=== PATIENT | female | born 1950 | race Caucasian/White ===

== ENCOUNTER → 2020-02-07 09:15 | Outpatient (CLI) | payer MEDICARE, SELFPAY ==
--- NOTE | 2020-02-07 | DI.RAD.S_ITS ---
PROCEDURE: XR CHEST 2V INDICATIONS: COUGH TECHNIQUE: 2 views of the chest were acquired. COMPARISON: None. FINDINGS: Surgical changes and devices: Cervical spine fixation hardware and thoracolumbar fixation hardware is partially seen. Lungs and pleura: Lungs are clear. No pleural effusions or pneumothorax. Mediastinum: Mediastinal contours are normal. Heart size is normal. Bones and chest wall: No suspicious bony abnormalities. Age-appropriate bony degenerative changes are seen. S-shaped scoliotic curvature is seen. Soft tissues appear unremarkable. IMPRESSION: Clear lungs, without focal infiltrates. Postoperative and degenerative changes are seen. Dictated by: Ace Field M.D. on 02/07/2020 at 11:12 Approved by: Ace Field M.D. on 02/07/2020 at 11:13
--- NOTE | 2020-02-07 11:59 | DI.US.S_ITS ---
PROCEDURE: US ABDOMEN LIMITED INDICATIONS: POST PRANDIAL RUQ AND EPIGASTRIC PAIN TECHNIQUE: Real-time scanning was performed of the abdominal and retroperitoneal organs, with image documentation. COMPARISON: None. FINDINGS: Liver: Liver is normal in size and homogeneous in echotexture. Gallbladder: There is no gallstone. No gallbladder wall thickening or pericholecystic fluid. No sonographic Thurman sign. Biliary ducts: Intrahepatic bile ducts are non-dilated. Extrahepatic bile duct caliber measures 7.2 mm. Normal is 6-7 mm or less in diameter, or 10 mm or less post-cholecystectomy. Pancreas: Visualized portions of the pancreas are sonographically normal. IMPRESSION: Borderline prominent common bile duct which is in the upper limits of normal for patient's age. No gross choledocholithiasis is seen. No intrahepatic biliary ductal dilatation. Normal appearing gallbladder, liver and visualized portion of pancreas. Dictated by: Víctor Monroe M.D. on 02/07/2020 at 12:53 Approved by: Víctor Monroe M.D. on 02/07/2020 at 12:54
== END ==
PROVIDERS: PCP Family Medicine; Referring Provider Family Medicine; Visit Provider Family Medicine
DX: R05 Cough (principal); R10.11 Right upper quadrant pain; R10.13 Epigastric pain; M41.9 Scoliosis, unspecified; K92.1 Melena; K27.9 Peptic ulcer, site unspecified, unspecified as acute or chronic, without hemorrhage or perforation; D64.9 Anemia, unspecified
CPT/HCPCS: 71046; 76705; 99214

== ENCOUNTER 2020-02-15 09:32 | Day surgery (SDC) | payer MEDICARE, SELFPAY ==
--- NOTE | 2020-02-15 | PATH_ITS ---
[facility] Accession Number: [id number] . 01 Material submitted: . PART A: duodenum - POLYP DUODENUM PART B: gastrointestinal site - STOMACH PART C: esophagus - ESOPHAGUS . 01 Clinical history: . SDC . 02 Diagnosis: A. Duodenum, Polyp, Biopsy: Duodenal mucosa with no diagnostic abnormality. Additional levels were examined. Negative for intraepithelial lymphocytosis or villous blunting. Negative for dysplasia and malignancy. . B. Stomach, Biopsy: Superficial gastric epithelium with no diagnostic abnormality. Additional levels were examined. Negative for Helicobacter by immunohistochemistry. Negative for intestinal metaplasia. Negative for dysplasia and malignancy. . C. Esophagus, Biopsy: Squamocolumnar junctional mucosa with no diagnostic abnormality. Negative for intestinal metaplasia. Negative for dysplasia and malignancy. . [facility] 02/19/2020 1613 Local . 02 Electronically signed: . Leeann Romeo MD, Pathologist NPI- [id number] . 01 Gross description: . Part A: POLYP DUODENUM: Received in formalin is 1 fragment(s) of harris, soft tissue measuring 0.4 x 0.2 x 0.1 cm submitted entirely in 1 cassette(s) Part B: STOMACH: Received in formalin are minute fragment(s) of harris, soft tissue measuring 0.2 x 0.2 x 0.1 cm in aggregate submitted entirely in 1 cassette(s) Part C: ESOPHAGUS: Received in formalin are 2 fragment(s) of harris, soft tissue measuring 0.2 x 0.2 x 0.1 cm to 0.1 x 0.1 x 0.1 cm submitted entirely in 1 cassette(s) /QKALPESH 02/16/2020 0747 Local . 02 Microscopic: . B. An immunohistochemical stain was performed to evaluate for Helicobacter organisms and is negative. The control stain showed appropriate reactivity. . C. An alcian blue stain was performed to evaluate for intestinal metaplasia and is negative. The control stain showed appropriate reactivity. . * This test was developed and its performance characteristics determined by [facility]. It has not been cleared or approved by the U.S. Food and Drug Administration. The FDA has determined that such clearance or approval is not necessary. This test is used for clinical purposes. It should not be regarded as investigational or for research. . 02 Pathologist provided ICD-10: D64.9, R10.13 . 02 CPT . 028891, 999151, 610129, S06515, 650117 Performed at: 01 [facility] [address] [place] [address], [place], [place] [id number] MD Roberto Chung MD Phone: [phone] Performed at: 02 [facility] [address] [place], [place] [id number] MD Leeann Romeo MD Phone: [phone]
[2020-02-15 09:57] VITALS: BP 130/80; PULSE 60; RESP 20; TEMP 36.3; O2SAT 100; BMI 21.9
[2020-02-15] MEDS: SODIUM CHLORIDE 0.9% 1,000 ML 200 ML IV (10:06)
--- NOTE | 2020-02-15 10:17 | PM.PREOP ---
Pre-operative Note COVID-19 COVID-19 status: Negative Result date/Date tested (Pos, Neg/Pending): 02/13/20 Interval Note History & Physical reviewed/Exam performed by Physician: Yes Changes to H&P: No ASA Class (for procedural sedation): I
--- NOTE | 2020-02-15 10:21 | P.OP.ENDO_ITS ---
Operative Date/Time/Diagnoses Date of procedure: 02/15/20 Time of procedure: 10:21 Pre-op diagnosis: Epigastric pain Post-op diagnosis: other (Gastric ulcers, prominent duodenal ampulla, reflux esophagitis, hill grade 3 hiatal hernia) Procedure & Clinicians Study performed: Esophagogastric duodenoscopy Conscious sedation performed by the endoscopy Cold forceps biopsies of duodenum, gastric antrum, distal esophagus Same procedure as scheduled: Yes Indications: Epigastric pain Surgeon: Mindi Ibarra Procedure Notes SCOAP/Timeout: Performed Procedure in detail: The patient was brought to the room and placed in left late ral decubitus position with all bony prominences padded. A bite block was positioned in the patient's mouth to protect the lips, teeth, and tongue for the procedure. A time-out was performed and then the patient was given procedural sedation starting with 2 mg of Versed and [100] mcg of fentanyl. A total of 3 mg of Versed and 100 micro g of fentanyl were given for the entire procedure. Vitals were monitored throughout the procedure and remained stable. Once adequately sedated, the procedure was begun. The lubricated gastroscope was passed through the bite block and across the tongue and into the esophagus without incident. A tubular view of the esophagus was maintained as the scope was advanced through the esophagus and into the stomach. The scope was advanced through the stomach and to the pylorus. The scope was gently popped through the pylorus and into the duodenal bulb. The scope was flexed and advanced into the second and third portions of the duodenum. Mild inflammation of the duodenal mucosa was seen, and a prominent ampulla of Vater was seen. Biopsies were taken of the duodenum. The scope was withdrawn into the stomach. Several shallow ulcers with mucosal slough central scarring were seen in the gastric antrum. No active bleeding or exposed vessels were seen. Biopsies were taken at this site. There was moderate endoscopic gastritis throughout the stomach. The scope was retroflexed and the gastric cardia was examined. In the hiatus a Hill grade 3 hiatal hernia was seen without any ulcerations. The scope was then straightened, and withdrawn into the esophagus. The Z-line was at 40 cm, and a few tongues of salmon-colored mucosa were seen coming up into the esophagus about 1-2 cm. This area was biopsied. The distal esophagus appeared otherwise normal. This the remainder the esophagus was examined, and it was moderately patulous, but with normal intact shiny epithelium. A couple of gastric inlet patches were seen in the upper esophagus. The scope was then withdrawn through the esophagus with a tubular view. The scope was then withdrawn from the patient the procedure was concluded. The patient tolerated the procedure well and was transferred to the PACU in stable condition. Sedation minutes: 22 Findings: gastric ulcer, gastritis, hiatal hernia (Hill grade 3) and other findings (Low-grade mucosal changes in the distal esophagus; prominent ampulla of Vater) Specimen(s): other (Biopsies of duodenum, gastric ulcers, distal esophagus) Post-procedure Recommendations: Other recommendation (Restart omeprazole, further recommendations will depend on biopsy results) Follow up: as needed (Will depend on biopsy results) Disposition: PACU
[2020-02-15] MEDS: fentaNYL 250 MCG/5 ML INJ IV (10:47)
[2020-02-15] MEDS: MIDAZOLAM 5 MG/5 ML VIAL IV (10:48)
[2020-02-15 10:51] VITALS: BP 108/70; PULSE 54; RESP 11; TEMP 35.8; O2SAT 97
[2020-02-15 10:56] VITALS: BP 109/71; PULSE 53; RESP 11; TEMP 36.8; O2SAT 95
[2020-02-15 11:01] VITALS: BP 110/68; PULSE 49; RESP 12; O2SAT 97
[2020-02-15 11:06] VITALS: BP 105/67; PULSE 48; RESP 10; O2SAT 96
[2020-02-15 11:40] VITALS: BP 102/69; PULSE 48; RESP 18; TEMP 36.6; O2SAT 100
--- NOTE | 2020-02-15 12:01 | SUR.PHASEII ---
Assumed care from Mitul in PACU, reported off to Yesi Shankar in Phase 2. Stable PACU stay, sppech strong swallow intact.
--- NOTE | 2020-02-15 12:03 | SUR.PHASEII ---
D/C paper work discussed with pt, pt voiced an understanding.
== END 2020-02-15 11:53 | disposition home or self-care (01) ==
PROVIDERS: PCP Family Medicine; Referring Provider Surgery; Visit Provider Surgery
PROC: 0DJ08ZZ Inspection of Upper Intestinal Tract, Via Natural or Artificial Opening Endoscopic (ICD-10-PCS; CPT 43235; principal; 2020-02-15 10:00)
DX: K25.9 Gastric ulcer, unspecified as acute or chronic, without hemorrhage or perforation (principal); K44.9 Diaphragmatic hernia without obstruction or gangrene; K29.70 Gastritis, unspecified, without bleeding
CPT/HCPCS: 43239; 99152; J2250; J3010

== ENCOUNTER 2020-06-06 09:46 | Day surgery (SDC) | payer MEDICARE, SELFPAY ==
--- NOTE | 2020-06-06 | PATH_ITS ---
[facility] Accession Number: [id number] . 01 Material submitted: . PART A: duodenum - DUODENUM PART B: stomach - STOMACH PART C: esophagus - DISTAL ESOPHAGUS . 02 Diagnosis: A. Duodenum, Biopsy: Duodenal mucosa with no diagnostic abnormality. Negative for active inflammation, features of sprue, dysplasia and malignancy. . B. Stomach, Biopsy: Antral mucosa with mild reactive gastropathy and mild chronic inflammation. Negative for Helicobacter by immunohistochemistry. Negative for intestinal metaplasia. Negative for dysplasia and malignancy. . C. Distal Esophagus, Biopsy: Squamocolumnar junctional mucosa with specialized intestinal metaplasia, consistent with Savage's esophagus. Negative for dysplasia and malignancy. [facility] 06/10/2020 1748 Local . 02 Electronically signed: . Leeann Romeo MD, Pathologist NPI- [id number] . 01 Gross description: . Three parts are received with this case: A. Duodenum biopsy. Part B. Stomach biopsy. Part C. Distal esophagus biopsy. . A. Received in formalin, labeled with the patient's name and duodenum biopsy, are two pink-harris fragments of mucosal tissue, 0.2 x 0.2 x 0.2 cm and 0.3 x 0.3 x 0.2 cm, submitted intact and entirely. Summary of sections: A1. Two pieces. B. Received in formalin, labeled with the patient's name and stomach biopsy, is a 0.4 x 0.2 x 0.2 cm fragment of pink-harris mucosal tissue, submitted intact and entirely. Summary of sections: B1. One piece. C. Received in formalin, labeled with the patient's name and distal esophagus biopsy, are two pink-harris fragments of mucosal tissue, 0.3 x 0.2 x 0.1 cm and 0.3 x 0.3 x 0.2 cm, submitted intact and entirely. Summary of sections: C1. Two pieces. ([id number]) /FRR 06/07/2020 1601 Local . 02 Microscopic: . B. An immunohistochemical stain was performed to evaluate for Helicobacter organisms and is negative. The control stain showed appropriate reactivity. . * This test was developed and its performance characteristics determined by [facility]. It has not been cleared or approved by the U.S. Food and Drug Administration. The FDA has determined that such clearance or approval is not necessary. This test is used for clinical purposes. It should not be regarded as investigational or for research. . 02 Pathologist provided ICD-10: K22.70 . 02 CPT . 127584, 365013, 201177, B37588 Performed at: 01 [facility] [address] [id number] MD Roberto Chung MD Phone: [phone] Performed at: 02 [facility] within [facility] [address] [address] [place] [id number] MD Leeann Romeo MD Phone: [phone]
[2020-06-06] MEDS: SODIUM CHLORIDE 0.9% 1,000 ML 200 ML IV (10:07)
[2020-06-06 10:12] VITALS: BP 124/72; PULSE 49; RESP 16; TEMP 37.1; O2SAT 100; BMI 21.6
--- NOTE | 2020-06-06 11:31 | P.HP_ITS ---
History of Present Illness History of Present Illness Date Patient Seen: 06/06/20 Time Patient Seen: 11:31 Chief complaint: SDC Narrative: This is a 69-year-old woman who had prior GI bleed from gastric ulcers. She has been on omeprazole for 3 months, and is coming back for a surveillance EGD to make sure her ulcers are healing. She denies any ongoing symptoms of epigastric pain, or nausea. She denies any melena or hematochezia. He she does have some focal right upper quadrant pain, similar to biliary colic. She has had a right upper quadrant ultrasound which showed no gallstones or other abnormalities. She has not had a HIDA scan. Her last colonoscopy was 6 years ago. ROS: Thirteen system review is otherwise negative other than as mentioned below and in HPI. PE: GENERAL: Well groomed and cooperative. Appears stated age. Answers questions promptly and appropriately. Vital signs noted. HENT: Normocephalic, atraumatic. Hearing intact. EYES: Conjunctiva pink, sclera white, no periorbital swelling. CARDIOVASCULAR: Regular rate. No pedal edema. RESPIRATORY: Non-tachypneic, breathing comfortably on room air. GASTROINTESTINAL: Abdomen soft and non-distended; right upper quadrant tenderness to palpation over the lower ribs GENITALURINARY: No flank tenderness. MUSCULOSKELETAL: Equal tone and mass bilaterally. SKIN: Warm, dry, soft, appropriate color for ethnicity. No other lesions, rashes, or wounds. NEURO: Alert and Oriented X 3. No gross sensory deficits, or cognitive issues. PSYCH: Appropriate affect and mood. Patient History Medical History (Updated 02/15/20 @ 11:07 by Mindi Ibarra MD) Bleeding ulcer Gastritis Surgical History History of back surgery Hx of carpal tunnel repair Family & Social History Family History Grandmother Hypertension Stroke Heart disease Mother Cancer Father Cancer Brother Gallstones Social History: household members none Tobacco & Substance use: Smoking Status Never smoker alcohol intake current alcohol intake frequency a few times a month Substance Use Type does not use Meds Home Medications and Allergies Home Medications Medication Instructions Recorded Confirmed Type calcium carbonate 500 mg calcium 500 mg PO DAILY 02/07/20 06/06/20 History (1,250 mg) tablet ferrous fumarate 325 mg (106 mg 325 mg PO DAILY 02/07/20 06/06/20 History iron) tablet latanoprost 0.005 % eye drops 1 drp EYE-BOTH DAILY 02/07/20 06/06/20 History melatonin 5 mg capsule 5 mg PO BEDTIME PRN 02/07/20 06/06/20 History cholecalciferol (vitamin D3) 25 mcg PO DAILY 02/15/20 06/06/20 History [Vitamin D3] fluticasone propionate [Flonase 1 spray INTRANASAL DAILY 02/15/20 06/06/20 H istory Allergy Relief] omeprazole 20 mg PO BID #60 cap 02/15/20 06/06/20 Rx Allergies Allergy/AdvReac Type Severity Reaction Status Date / Time codeine Allergy Unknown Nausea Verified 06/06/20 10:11 hydrocodone Allergy Unknown Nausea Verified 06/06/20 10:11 Exam Vital Signs (past 8 hours): - 06/06/20 10:12 Temperature 98.8 F Pulse Rate 49 L Respiratory Rate 16 Blood Pressure 124/72 Pulse Oximetry 100 Oxygen Delivery Method Room Air Oxygen Flow Rate 0 Assessment & Plan Assessment and plan (1) Bleeding gastric ulcer: Status: Acute (2) Peptic ulcer: Status: Acute (3) Epigastric pain: Status: Acute (4) Postprandial RUQ pain: Status: Acute Assessment & Plan narrative: This is a 69-year-old woman with history of epigastric pain and peptic ulcer with bleeding. She has been on omeprazole for 3 months, and is here for follow-up surveillance EGD and biopsy. His ongoing right upper quadrant pain, for which she will need a HIDA scan, and possibly colonoscopy. She is also going back to her orthopedic surgeon to have the hardware in her back checked to make sure it is not causing the pain. Risks and benefits of surveillance EGD and possible biopsy were discussed with the patient including risk of bleeding, perforation, need for additional procedures, risks of anesthesia. The patient desires to proceed with the EGD and biopsy procedure. COVID-19 COVID-19 status: Negative Result date/Date tested (Pos, Neg/Pending): 06/04/20 Time Spent With Patient Time with patient: 15-24 minutes Quality VTE Deep Vein Thrombosis/Pulmonary Embolism Present on Admission: No
--- NOTE | 2020-06-06 11:35 | PM.OP.ENDO ---
Operative Date/Time/Diagnoses Date of procedure: 06/06/20 Time of procedure: 11:35 Pre-op diagnosis: History of peptic ulcers Procedure & Clinicians Study performed: Esophagogastroduodenoscopy Biopsies of duodenum, stomach, distal esophagus Procedural sedation performed by the above Same procedure as scheduled: Yes Indications: History of peptic ulcers with bleeding, here for surveillance EGD Surgeon: Mindi Ibarra Procedure Notes SCOAP/Timeout: Performed Procedure in detail: The patient was brought to the room and placed in left lateral decubitus position with all bony prominences padded. A bite block was positioned in the patient's mouth to protect the lips, teeth, and tongue for the procedure. A time-out was performed and then the patient was given procedural sedation starting with 2 mg of Versed and 100 mcg of fentanyl. Vitals were monitored throughout the procedure and remained stable. Once adequately sedated, the procedure was begun. The lubricated gastroscope was passed through the bite block and across the tongue and into the esophagus without incident. A tubular view of the esophagus was maintained as the scope was advanced through the esophagus and into the stomach. The scope was advanced through the stomach and to the pylorus. The scope was gently popped through the pylorus and into the duodenal bulb. The scope was flexed and advanced into the second and third portions of the duodenum. There was some mild inflammatory change in the duodenum. This was biopsied. No ulcers were seen. The scope was withdrawn into the stomach. There was some mild endoscopic gastritis. No visible ulcers were seen, which is an improvement from the prior endoscopy. This was biopsied. The scope was retroflexed and the gastric cardia was examined. A Hill grade 3 hiatal hernia was seen, with no ulcers. The scope was then straightened, and withdrawn into the esophagus. There was a broken Z-line at 40 cm from the teeth, without significant evidence of esophagitis or Savage's esophagus. The distal esophagus appeared otherwise normal. Biopsies were taken. The scope was then withdrawn through the esophagus with a tubular view. The scope was then withdrawn from the patient the procedure was concluded. The patient tolerated the procedure well and was transferred to the PACU in stable condition. Sedation minutes: 13 Findings: hiatal hernia (Hill grade 3 hiatal hernia, without ulceration) and other findings (Mild inflammation of the duodenum, stomach, distal esophagus) Specimen(s): other (Biopsies of duodenum, stomach, distal esophagus) Complications: none Impression: Low-grade inflammation in the stomach, duodenum, and distal esophagus, without any ulcer seen on today's exam. This is significantly improved from her prior upper endoscopy. Post-procedure Recommendations: Other recommendation (Recommendations will depend on biopsy results. Please continue omeprazole for now. We will contact you with the biopsy results and further recommendations.) Follow up: as needed Disposition: PACU
[2020-06-06] MEDS: fentaNYL 250 MCG/5 ML INJ IV (11:37)
[2020-06-06] MEDS: MIDAZOLAM 5 MG/5 ML VIAL IV (11:37)
[2020-06-06] MEDS: LIDOCAINE 4% SOLN 50 ML 20 ML TOP (11:45)
[2020-06-06 11:56] VITALS: BP 99/65; PULSE 52; RESP 10; TEMP 35.8; O2SAT 92
[2020-06-06 12:00] VITALS: BP 107/62; PULSE 52; RESP 14; O2SAT 97
[2020-06-06 12:10] VITALS: BP 103/60; PULSE 59; RESP 12; O2SAT 100
[2020-06-06 12:14] VITALS: BP 108/62; PULSE 60; RESP 12; TEMP 36.3; O2SAT 99
[2020-06-06 12:30] VITALS: BP 120/69; PULSE 51; RESP 18; TEMP 36.7; O2SAT 100
--- NOTE | 2020-06-06 12:39 | SUR.PHASEII ---
Ride called as pt ready to go, belly soft denies pain discomfort. dressed and left in stable condition, priority load given as well.
== END 2020-06-06 12:45 | disposition home or self-care (01) ==
PROVIDERS: PCP Family Medicine; Referring Provider Surgery; Visit Provider Surgery
PROC: 0DJ08ZZ Inspection of Upper Intestinal Tract, Via Natural or Artificial Opening Endoscopic (ICD-10-PCS; CPT 43235; principal; 2020-06-06 10:45)
DX: K29.50 Unspecified chronic gastritis without bleeding (principal); K44.9 Diaphragmatic hernia without obstruction or gangrene
CPT/HCPCS: 43239; 99152; J2250; J3010

== ENCOUNTER → 2020-06-16 12:02 | Outpatient (CLI) | payer MEDICARE, SELFPAY ==
--- NOTE | 2020-06-16 12:03 | DI.NM.S_ITS ---
PROCEDURE: NM HIDA WITH CCK PHARMACEUTICAL: 5.2 mCi Tc-99m mebrofenin IV; 1.2 mcg CCK IV. INDICATIONS: RUQ pain, normal US TECHNIQUE: Following intravenous administration of Tc-99m mebrofenin, sequential anterior abdominal images were obtained. To evaluate the contractile response of the gallbladder in response to Cholecystokinin (CCK), sincalide (0.02 ?g/kg) was administered by slow intravenous infusion approximately 60 minutes after the administration of the radiopharmaceutical. Sequential imaging was continued for 30 minutes after the start of CCK infusion. Gallbladder ejection fraction was calculated. COMPARISON: None. FINDINGS: Biliary scan: There is normal tracer uptake and excretion by the liver. There is normal visualization of the intrahepatic ducts, common bile duct, and gallbladder. There is normal tracer transit into the duodenum. CCK stimulation: There is normal contractile response of the gallbladder to CCK infusion. The calculated gallbladder ejection fraction is 82%; normal values are above 35%. It has been shown that any patient abdominal pain after CCK administration is related to the rate of CCK injection, rather than to any underlying gallbladder disease (Clinical Nuclear Medicine 2012; 37: 63-70. Journal of Nuclear Medicine 2014; 55: 1-9). IMPRESSION: 1. Normal filling of gallbladder. No evidence for acute cholecystitis. 2. Normal contractile response of gallbladder to CCK stimulation. Dictated by: Jb Ash M.D. on 06/16/2020 at 14:18 Approved by: Jb Ash M.D. on 06/16/2020 at 14:21
== END ==
PROVIDERS: PCP Family Medicine; Referring Provider Surgery; Visit Provider Surgery
DX: R10.11 Right upper quadrant pain (principal)
CPT/HCPCS: 78227; A9537; J2805

== ENCOUNTER 2020-07-16 10:22 | Day surgery (SDC) | payer MEDICARE, SELFPAY ==
[2020-07-16] VITALS (18 sets, daily range): BP systolic 117–145; BP diastolic 52–78; PULSE 16–80; RESP 11–83; TEMP 36.1–36.8; O2SAT 93–100; BMI 21.4
--- NOTE | 2020-07-16 | PATH_ITS ---
[facility] Accession Number: [id number] . 01 Material submitted: . gallbladder - GALLBLADDER . 02 Diagnosis: Gallbladder, Cholecystectomy: Gallbladder with no significant histomorphologic abnormality. No choleliths identified at gross examination. [facility] 07/18/2020 1314 Local . 02 Electronically signed: . Carol Salmeron MD, Pathologist NPI- [id number] . 01 Gross description: . The specimen is received in formalin, labeled gallbladder and consists of a 9.0 x 3.0 x 3.0 cm intact gallbladder with a 0.3 cm in diameter cystic duct. The serosa is harris-green and smooth. Opening reveals green viscous bile with no choleliths identified. The mucosa is harris-green and velvety and the wall thickness measures 0.1 cm. Edge Finisher sections are submitted to include the en face cystic duct margin (blue) in cassette A1. ([id number]) /MRV 07/17/2020 1106 Local . 02 Pathologist provided ICD-10: K81.9 . 02 CPT . 051370 Performed at: 01 [facility] [address] [place] [address], [place], [place] [id number] MD Roberto Chung MD Phone: [phone] Performed at: 02 [facility] [address] [place], [place] [id number] MD Leeann Romeo MD Phone: [phone]
[2020-07-16] MEDS: Non-Formulary Medication (Indocyanine 25 MG) 25 EACH IV (10:48)
[2020-07-16] MEDS: LACTATED RINGERS 1,000 ML 100 ML IV ×3 (10:48→17:27)
--- NOTE | 2020-07-16 11:23 | PM.PREOP ---
Pre-operative Note COVID-19 COVID-19 status: Negative Result date/Date tested (Pos, Neg/Pending): 07/14/20 Interval Note History & Physical reviewed/Exam performed by Physician: Yes Changes to H&P: No
[2020-07-16] MEDS: PIPERACILLIN-TAZO 3.375 GM/50 ML FROZ.PIGGY IV (11:34)
--- NOTE | 2020-07-16 11:50 | SUR.OPER ---
Supine on padded OR bed, head on pillow, arms secured on padded arm boards at <90 degrees abduction, legs uncrossed, safety belt at thigh, tape over blanket over lower legs.
[2020-07-16] MEDS: BUPIVACAINE 0.25% W/ EPI (PF) 10 ML VIAL 20 ML INJ (11:58)
--- NOTE | 2020-07-16 12:59 | P.OP_ITS ---
Operative Date/Time/Diagnoses Date of procedure: 07/16/20 Time of procedure: 13:00 Pre-op diagnosis: Biliary colic, biliary hyperkinesia Post-op diagnosis: same Procedure & Clinicians Procedure: Laparoscopic cholecystectomy, with indocyanine green cholangiography Same procedure as scheduled: Yes Indications: Biliary colic, biliary hyperkinesia Surgeon: Mindi Ibarra Click Yes if Unassisted: Yes Anesthesia Type: General Operative Notes Findings: Adhesions of omentum to the surface of the gallbladder and liver. Elongated, flaccid gallbladder, consistent with neuromuscular dysfunction of the gallbladder. Good critical view of safety, confirmed on indocyanine green cholangiography. Specimen(s): other ( Gallbladder and contents) Estimated Blood Loss (mL): 1 Procedure in detail: The patient was brought into the operating room and placed supine on the OR table. Sequential compression devices were placed on both legs and turned on. Appropriate perioperative antibiotics were given prior to the start of surgery. General anesthesia was induced the patient was intubated. The abdomen was prepped and draped in sterile fashion. Surgical time-out was conducted. Local anesthetic was injected under the skin just superior to the umbilicus and a 5 mm vertical incision was made at this site. The umbilical stalk was grasped with a Cyndie and elevated. A Veress needle was passed through the fascia into proper position. The position was tested with a saline drop test which was appropriate for intra-abdominal Veress needle placement. The abdomen was then insufflated in the usual fashion. Once insufflated to 15 mm Hg the Veress needle was removed and a 5 mm optical trocar was placed under direct vision using a 5 mm 30 degree scope. Once the camera was inside the abdomen I took a look around. There was no injury from port placement. Two additional ports were placed in a similar fashion in the right upper quadrant and a 10 mm port was placed in the epigastrium. Through the 2 lateral ports the gallbladder was grasped and elevated and the infundibulum was retracted late rally to the patient's right. This exposed the gallbladder hilum and allowed for dissection of the cystic duct and cystic artery. There were some adhesions of omentum to the gallbladder fundus and the surface of the liver. These were taken down with hook cautery. At this point dissection of the gallbladder hilum was undertaken, and adhesions were taken down from the infundibulum and the surface of the cystic duct and artery. Indocyanine green cholangiography was used to identify the cystic duct and common bile duct. Both were easily seen, and the common bile duct was well away from the area of dissection. Once the cystic duct and artery were completely dissected out I was able to see liver behind and between both structures without any other structures in the way, giving us the critical view of safety. At this point I triply clipped both structures on the patient's side and put a single clip on the gallbladder side of both the cystic duct and artery. Both structures were then divided with laparoscopic [place]. Following this the gallbladder was gradually dissected free from the liver. There was quite a bit of hypervascularity of the scar tissue between the gallbladder and the liver. Several small vessels had to be controlled with cautery. Once the gallbladder was entirely freed, it was placed inside an Endo- Catch bag and removed through the epigastric port site. I did not have to enlarge the epigastric port site in order to get the gallbladder out. Once it was out and passed off to the back table I then took another look inside the abdomen. I suctioned clean any remaining blood or fluid on the lateral side of the liver and in the subhepatic space. There was no active bleeding or leaking of bile from the gallbladder fossa or from the clipped stumps of the cystic duct and artery. At this point an O vicryl on a Chau Irina suture passer was used to close the epigastric port site in the fascia. Insufflation was then removed from the abdomen. A 3 O Vicryl was used to close the subcutaneous layers, and 4 Monocryl in the skin. Additional local anesthetic was infiltrated into each port site. Each port site was sealed with Dermabond. This concluded the procedure. At this point the needle sponge and instrument counts were correct. The gallbladder was passed off the table for pathology. Patient was awakened from anesthesia and extubate d. She was transferred to the postanesthesia care unit in stable condition. Complications: none Post-operative Condition: stable Disposition: PACU
[2020-07-16] MEDS: ONDANSETRON 4 MG/2 ML INJ IV ×3 (13:02→21:17)
[2020-07-16] MEDS: HYDROMORPHONE 2 MG INJ IV (13:18)
[2020-07-16] MEDS: fentaNYL 100 MCG/2 ML INJ IV (13:18)
[2020-07-16] MEDS: OXYCODONE/ACETAMINOPHEN 5/325 TABLET 1 TAB PO ×2 (13:19→14:11)
--- NOTE | 2020-07-16 13:48 | SUR.PHASEI ---
Patient resting quietly in bed with eyes closed. RR even and unlabored. VSS.
--- NOTE | 2020-07-16 14:31 | SUR.PHASEII ---
Patient still appears quite drowsy ad is
--- NOTE | 2020-07-16 14:32 | SUR.PHASEII ---
patient still appears quite drowsy and is not ready to go home. Notified patient's point of contact, who is at the pharmacy getting prescriptions. Patient and friend are to depart on the [facility] at 1900. Advised friend that patient might be ready to discharge home in an hour and that this nurse would contact her again in about 45 minutes. V/u.
[2020-07-16] MEDS: KETOROLAC 30 MG/ML VIAL 15 MG IV ×2 (15:27→21:17)
--- NOTE | 2020-07-16 15:44 | SUR.PHASEII ---
Resting quietly in stretcher in no distress. Awaiting inpatient room assignment. VSS.
[2020-07-16] MEDS: HYDROMORPHONE 0.5 MG INJ IV (17:30)
[2020-07-16] MEDS: PANTOPRAZOLE 20 MG TABLET PO (21:18)
--- NOTE | 2020-07-16 23:42 | PC.NURSE ---
Admit/Evening Shift Note- Patient arrived to room via stretcher from PACU at 1620. Patient settled in and oriented to bed and bed controls. Continuous pulse ox placed to monitor O2 level. O2 levels running between 87-92% on room air, O2 maintaining more around 88%, O@/NC/2L placed. Patient reports actually feeling of dizziness and nausea has improved with the O2. level Patient complains of pain of 6-7/10. PRN IV Dilaudid given as ordered. Patient stated I feel woozy and dizzy. Helped patient reposition and patient soon fell asleep and slept until 2029. Unable to complete admit questions and assessment able to be completed at that point. Patient agrees to call for assistance. Call kennedy and phone within reach. Will continue to monitor.
--- NOTE | 2020-07-17 00:27 | PC.NURSE ---
Addendum entered by Bianca Martinez R.N. 07/17/20 06:22: States pain is more intense this morning at 4/10 so medicated with Toradol as did not want any narcotics. Addendum entered by Bianca Martinez R.N. 07/17/20 02:38: Up to bathroom with walker and SBA. States pain is only 2/10 so medicated with Tylenol and ice pack provided. Original Note: patient is alert and oriented. Breath sounds CTA with RA sat of 99%; being monitored on continuous oximetry per MD order. HRR. Denies nausea but states she feels a little queasy; did have emesis on previous shift. BT hypoactive but patient states she has passed some flatus. Up to BSC to urinate with 1 assist on previous shift; denies dysuria, frequency or urgency. Able to move self in bed but feels some generalized weakness. Bandaid dressings to abdomen are CDI. States pain is tolerable at 3-4/10 and is using ice for comfort. Chronic bilateral foot neuropathy unchanged. Wearing bilateral calf SCD's. HOB is elevated to 30 degrees as ordered.
[2020-07-17] MEDS: ACETAMINOPHEN 325 MG TABLET 650 MG PO ×2 (02:34→08:23)
[2020-07-17] MEDS: LACTATED RINGERS 1,000 ML 100 ML IV (02:36)
[2020-07-17 05:24] VITALS: BP 113/60; PULSE 63; RESP 16; TEMP 36.6; O2SAT 99
[2020-07-17] MEDS: KETOROLAC 30 MG/ML VIAL 15 MG IV (06:12)
[2020-07-17] MEDS: PANTOPRAZOLE 20 MG TABLET PO (06:12)
[2020-07-17 07:33] VITALS: BP 115/67; PULSE 74; RESP 14; O2SAT 100
[2020-07-17] MEDS: FLUTICASONE 120 SPRAY/16 GM SPRAY.SUSP NASAL (08:21)
[2020-07-17] MEDS: CALCIUM CARBONATE 500 MG TAB PO (08:22)
[2020-07-17] MEDS: FERROUS SULFATE 325 MG TABLET PO (08:23)
[2020-07-17] MEDS: CHOLECALCIFEROL (VITAMIN D3) 1,000 UNIT TABLET 1000 UNIT PO (08:23)
--- NOTE | 2020-07-17 10:04 | PC.NURSE ---
Day shift: ABD binder applied per MD and Pt tolerating well. Pt is dressed and awaiting her ride. Paperwork signed and all questions answered. Her MD scripts are waiting at [facility]. Pt has all personal belongings. Lap site dressings are all CDI. Instructed on I.S. use and Pt is going to keep using it at home. Pt has been steady on her feet. Denies any nausea or chest pain. Has ABD pain of 2/10. Tylenol PO is working for that. Pt will be taken to her friends car in .
--- NOTE | 2020-07-17 10:25 | PC.NURSE ---
Day shift: Pt left unit via JENN w/ GABRIEL Torrez at approx 1030. Pt's friend is waiting in her car at the ED entrance.
--- NOTE | 2020-07-17 10:53 | CM.DANOTE ---
Addendum entered by Lia Mcdermott R.N. 07/17/20 10:57: Assessment was performed at 0915. Prior to patient departure. Note delayed in entry. Original Note: This patient is a valentin 69 [address] Ibarra here for a Lap Amaris. Pt was ambulating around the room getting dressed after finishing breakfast when I stopped in to assess for D/C needs. A&O x 4. Pt. very much looking forward to going home today, RN had dropped off priority boarding pass for Jeramie jeffery. Friend was coming to pick pt. up. C/O mild abd pain with ambulation but is still able to ambulate easily without visible distress. Denied need for any assistive services. No barriers anticipated for a home discharge.
== END 2020-07-17 10:27 | disposition home or self-care (01) ==
LOC: OR 13:32 → AC 16:25
PROVIDERS: PCP Family Medicine; Referring Provider Surgery; Visit Provider Surgery
PROC: 0FT44ZZ Resection of Gallbladder, Percutaneous Endoscopic Approach (ICD-10-PCS; CPT 47562; principal; 2020-07-16 11:30)
DX: K82.8 Other specified diseases of gallbladder (principal); J45.20 Mild intermittent asthma, uncomplicated
CPT/HCPCS: 47563; 82962; 94762; J0330; J1100; J1170; J1885; J2405; J2543; J2704; J3010

== ENCOUNTER → 2020-08-15 11:43 | Outpatient (CLI) | payer MEDICARE, SELFPAY ==
[2020-07-16 16:35] VITALS: BMI 21.4
--- NOTE | 2020-08-15 11:45 | DI.MRI.S_ITS ---
PROCEDURE: MR ABDOMEN WO CON INDICATIONS: prominent common bile duct on US, persistent RUQ pain TECHNIQUE: Coronal HASTE through the abdomen, axial 2-D FLASH in- and [id number], and breath-hold T2 FSE with fat saturation through the biliary system and pancreas. Oblique coronal and axial thin-slice HASTE, radial thick-slab HASTE centered on the extrahepatic bile ducts. Intravenous secretin: Not requested. COMPARISON: [place], [place], PR HIDA WITH CCK, 06/16/2020, 12:31. [facility], [place], US ABDOMEN LIMITED, 02/07/2020, 12:07. FINDINGS: Image quality: Excellent. Pancreas and biliary system: The common hepatic duct is dilated measuring 1.3 cm. Mild central intrahepatic biliary dilatation measuring 6 mm on the right and 7 mm on the left. The common bile duct after cystic duct insertion measures 10 mm in maximal diameter and tapers normally to the ampulla. No filling defects. There is pancreatic divisum morphology. The main pancreatic duct is smoothly dilated measuring up to 6 mm in the pancreatic neck. There is a prominent dilated side branch extending cranially off the pancreatic tail. It measures approximately 6 mm in width and 1.8 cm in length. Gallbladder is now surgically absent as the cystic duct terminates bluntly. Other solid organs: Liver is normal in size. Scattered hepatic cysts are present. Spleen is normal in size. No adrenal nodules. Both kidneys are normal in size, without hydronephrosis. There is a large upper pole simple left renal cyst. Nodes and vessels: No retroperitoneal or mesenteric adenopathy by size criteria. Aorta and inferior vena cava are normal in size. Bowel and peritoneum: Unenhanced bowel loops are normal in caliber. No free fluid. Lung bases: No basal pleural effusions. Heart size is normal. Bones and soft tissues: Moderate S-shaped thoracolumbar scoliosis contributes to slight distortion of the abdominal structures. Multilevel surgical fixation hardware is noted. Tiny fat containing umbilical hernia. Bone marrow is of normal overall signal. IMPRESSION: This report contains several corrections as it was inadvertently signed before completed. 1. Dilated common hepatic and common bile duct without filling defect. This may be due to ampullary stricture, benign or less likely malignant. ERCP is recommended. 2. Post cholecystectomy. 3. Dilated pancreatic duct with smooth margin and pancreas divisum morphology. This can predispose the patient pancreatitis. Chronic pancreatitis may result and ductal dilatation. 4. There is a dilated pancreatic ductal side branch. Follow-up MRCP in six months is recommended for reassessment. Dictated by: Eli Araya M.D. on 08/15/2020 at 15:28 Approved by: Eli Araya M.D. on 08/15/2020 at 15:54
== END ==
PROVIDERS: PCP Family Medicine; Referring Provider Surgery; Visit Provider Surgery
DX: R10.11 Right upper quadrant pain (principal); K83.8 Other specified diseases of biliary tract; K86.89 Other specified diseases of pancreas; M54.6 Pain in thoracic spine; Z90.49 Acquired absence of other specified parts of digestive tract
CPT/HCPCS: 74181

== ENCOUNTER → 2020-09-26 12:27 | Outpatient (CLI) | payer MEDICARE, SELFPAY ==
[2020-09-26 11:23] VITALS: BMI 21.4
[2020-09-26 20:23] LABS: Add Manual Diff / Slide Review NO; Basophils Absolute Auto 0 /uL (0-100); Basophils Percent Auto 0.5 % (0-2); Eosinophils Absolute Auto 100 /uL (0-450); Hematocrit 43.6 % (36-46); Hemoglobin 14.7 g/dL (12.0-16.0); Lymphocytes Absolute Auto 1500 /uL (1100-4500); Lymphocytes Percent Auto 26.2 % (25-40); Mean Corpuscular HGB Conc 33.8 % (30-36); Mean Corpuscular Volume 91.7 fL (80-100); Monocytes Absolute Auto 400 /uL (0-900); Monocytes Percent Auto 7.3 % (3-14); Neutrophils Absolute Auto 3800 /uL (1500-7000); Platelet Count 239 X10^3/uL (150-400); Red Blood Cell Count 4.76 X10^6/uL (4.0-5.2); Red Cell Distribution Width 13.9 % (11.6-14.8); White Blood Cell Count 5.8 X10^3/uL (4.5-11.0)
[2020-09-26 20:30] LABS: Alanine Aminotransferase 29 IU/L (<35); Albumin 4.7 g/dL (3.5-5.0); Albumin Globulin Ratio 1.7 (1.0-2.8); Alkaline Phosphatase 81 U/L (38-126); Amylase 69 U/L (30-110); Aspartate Aminotransferase 41 IU/L (14-36); Bilirubin Total 0.7 mg/dL (0.2-1.3); Blood Urea Nitrogen 12 mg/dL (7-17); Calcium 9.9 mg/dL (8.4-10.2); Carbon Dioxide 29 mmol/L (22-32); Chloride 98 mmol/L (98-107); Estimated Glomerular Filt Rate > 60.0 mL/min (>60); Globulin 2.7 g/dL (1.7-4.1); Glucose 92 mg/dL (80-110); HEMOLYSIS 18 (0-50); Lipase 100 U/L (23-300); Potassium 4.3 mmol/L (3.4-5.1); Sodium 135 mmol/L (137-145); Total Protein 7.4 g/dL (6.3-8.2)
[2020-09-26 21:27] LABS: Erythrocyte Sedimentation Rate 4 MM/HR (0-20)
== END ==
PROVIDERS: PCP Family Medicine; Visit Provider Family Medicine
DX: K22.70 Barrett's esophagus without dysplasia (principal); R10.11 Right upper quadrant pain; K25.4 Chronic or unspecified gastric ulcer with hemorrhage; K83.9 Disease of biliary tract, unspecified; R93.5 Abnormal findings on diagnostic imaging of other abdominal regions, including retroperitoneum; R94.8 Abnormal results of function studies of other organs and systems; Z90.49 Acquired absence of other specified parts of digestive tract
CPT/HCPCS: 80053; 82150; 83690; 85025; 85651

== ENCOUNTER → 2020-12-26 12:01 | Outpatient (CLI) | payer MEDICARE, SELFPAY ==
[2020-09-26 11:23] VITALS: BMI 21.4
[2020-12-26 19:38] LABS: Alanine Aminotransferase 22 IU/L (<35); Albumin 4.5 g/dL (3.5-5.0); Albumin Globulin Ratio 1.8 (1.0-2.8); Alkaline Phosphatase 63 U/L (38-126); Aspartate Aminotransferase 39 IU/L (14-36); Bilirubin Total 0.6 mg/dL (0.2-1.3); Bilirubin Unconjugated 0.5 mg/dL (0.0-1.1); Globulin 2.5 g/dL (1.7-4.1); HEMOLYSIS < 15 (0-50)
== END ==
PROVIDERS: PCP Family Medicine
DX: Q45.3 Other congenital malformations of pancreas and pancreatic duct (principal)
CPT/HCPCS: 80076

== ENCOUNTER → 2021-06-03 11:35 | Outpatient (CLI) | payer MEDICARE, SELFPAY ==
[2020-09-26 11:23] VITALS: BMI 21.4
[2021-06-03 20:01] LABS: Alanine Aminotransferase 22 IU/L (<35); Albumin 4.6 g/dL (3.5-5.0); Albumin Globulin Ratio 1.9 (1.0-2.8); Alkaline Phosphatase 68 U/L (38-126); Aspartate Aminotransferase 37 IU/L (14-36); Bilirubin Total 0.6 mg/dL (0.2-1.3); Bilirubin Unconjugated 0.6 mg/dL (0.0-1.1); Globulin 2.4 g/dL (1.7-4.1); HEMOLYSIS < 15 (0-50)
== END ==
PROVIDERS: PCP Family Medicine; Referring Provider Internal Medicine Gastroenterology; Visit Provider Internal Medicine Gastroenterology
DX: R94.5 Abnormal results of liver function studies (principal)
CPT/HCPCS: 80076

== ENCOUNTER → 2021-09-03 09:41 | Outpatient (CLI) | payer MEDICARE, SELFPAY ==
[2020-09-26 11:23] VITALS: BMI 21.4
[2021-09-03 19:39] LABS: Alanine Aminotransferase 22 IU/L (<35); Albumin 4.5 g/dL (3.5-5.0); Albumin Globulin Ratio 1.8 (1.0-2.8); Alkaline Phosphatase 61 U/L (38-126); Aspartate Aminotransferase 36 IU/L (14-36); Bilirubin Total 0.9 mg/dL (0.2-1.3); Bilirubin Unconjugated 0.9 mg/dL (0.0-1.1); Globulin 2.5 g/dL (1.7-4.1); HEMOLYSIS 16 (0-50)
== END ==
PROVIDERS: PCP Family Medicine; Visit Provider Internal Medicine Gastroenterology
DX: Q45.3 Other congenital malformations of pancreas and pancreatic duct (principal); R94.5 Abnormal results of liver function studies
CPT/HCPCS: 80076

== ENCOUNTER → 2022-08-06 14:36 | Outpatient (CLI) | payer MEDICARE, SELFPAY ==
[2021-12-14 10:11] VITALS: BMI 21.4
--- NOTE | 2022-08-06 14:37 | DI.US.S_ITS ---
PROCEDURE: US PERIPH VENOUS LOW EXTREM LT INDICATIONS: GROIN AND POST KNEE PAIN X 1 WEEK. SWELLING. HISTORY OF DVT. TECHNIQUE: Real-time imaging, as well as color and pulse Doppler interrogation, were performed of the lower extremity deep veins from the inguinal ligament to the popliteal fossa. COMPARISON: None. FINDINGS: The common femoral, femoral and popliteal veins are normally compressible, and free of intraluminal thrombus. Color and pulse Doppler demonstrate normal phasic intraluminal flow. There is normal augmentation response to distal compression maneuver. IMPRESSION: No DVT found. Dictated by: Marquis Molina M.D. on 08/06/2022 at 15:02 Approved by: Marquis Molina M.D. on 08/06/2022 at 15:02
--- NOTE | 2022-08-06 14:59 | DI.MG.S_ITS ---
BILATERAL DIGITAL SCREENING MAMMOGRAM 3D/2D WITH CAD: 08/06/2022 CLINICAL: Routine screening. Family history of breast cancer. Comparison is made to exams dated: 03/11/2020 mammogram and 02/24/2018 mammogram - outside. Both breasts are heterogeneously dense, which may obscure small masses (category c / 51-75% glandular tissue). Current study was also evaluated with a Computer Aided Detection (CAD) system. There is a focal asymmetry in the left breast central to the nipple posterior depth. No other significant masses, calcifications, or other findings are seen in either breast. IMPRESSION: INCOMPLETE: NEEDS ADDITIONAL IMAGING EVALUATION The focal asymmetry in the left breast is indeterminate. Additional views with possible ultrasound are recommended. Based on the Tyrer Cuzick model (a risk assessment model) the patient's lifetime risk is 8.4% and her 10 year risk is 5.8%. According to the ACR, ACS, and NCCN guidelines, an annual breast MRI exam along with mammogram is recommended if the patient's lifetime risk is 20% or greater. This exam was interpreted at Station ID: [id number]. NOTE: For mammograms, a report in lay terms will be sent to the patient. Approximately 15% of breast malignancies will not be visualized mammographically. In the management of a palpable breast mass, a negative mammogram must not discourage biopsy of a clinically suspicious lesion. Electronically Signed By: Saima harrison/ward:08/06/2022 15:26:10 letter sent: Additional Imaging Needed ACR BI-RADS Category 0: Incomplete 3340F
== END ==
PROVIDERS: PCP Family Medicine; Referring Provider Physician Assistant; Visit Provider Physician Assistant
DX: Z12.31 Encounter for screening mammogram for malignant neoplasm of breast (principal); Z80.3 Family history of malignant neoplasm of breast; M79.605 Pain in left leg; Z86.718 Personal history of other venous thrombosis and embolism
CPT/HCPCS: 73502; 77063; 77067; 93971

== ENCOUNTER → 2022-08-10 12:00 | Outpatient (CLI) | payer MEDICARE, SELFPAY ==
[2021-12-14 10:11] VITALS: BMI 21.4
--- NOTE | 2022-08-10 | DI.MG.S_ITS ---
UNILATERAL LEFT DIGITAL DIAGNOSTIC MAMMOGRAM 3D/2D WITH ADDITIONAL VIEWS: 08/10/2022 CLINICAL: Additional evaluation requested from prior study. Comparison is made to exams dated: 08/06/2022 mammogram - [facility], 03/11/2020 mammogram, and 02/24/2018 mammogram - outside. The left breast is heterogeneously dense, which may obscure small masses (category c / 51-75% glandular tissue). There is a focal asymmetry in the left breast at 9 o'clock middle depth. No other significant masses or calcifications are seen in the breast. IMPRESSION: INCOMPLETE: NEEDS ADDITIONAL IMAGING EVALUATION The focal asymmetry in the left breast is indeterminate. A targeted ultrasound of the left breast is recommended and will be performed immediately following this exam. Based on the Tyrer Cuzick model (a risk assessment model) the patient's lifetime risk is 8.4% and her 10 year risk is 5.8%. According to the ACR, ACS, and NCCN guidelines, an annual breast MRI exam along with mammogram is recommended if the patient's lifetime risk is 20% or greater. This exam was interpreted at Station ID: [id number]. NOTE: For mammograms, a report in lay terms will be sent to the patient. Approximately 15% of breast malignancies will not be visualized mammographically. In the management of a palpable breast mass, a negative mammogram must not discourage biopsy of a clinically suspicious lesion. Electronically Signed By: Saima Trammell M.D. lk/:08/10/2022 13:13:49 ACR BI-RADS Category 0: Incomplete 3340F
--- NOTE | 2022-08-10 | DI.US.S_ITS ---
LIMITED ULTRASOUND OF LEFT BREAST AND AXILLA: 08/10/2022 CLINICAL: Patient returns today to evaluate a focal asymmetry in the left breast. Comparison is made to exams dated: 08/06/2022 mammogram, 08/10/2022 mammogram - [facility], 02/24/2018 mammogram, and 03/11/2020 mammogram - outside. Color flow ultrasound of the left breast axilla was performed on the areas of interest. Diallo scale images of the real-time examination were reviewed. There is an oval mass in the left breast at 9 o'clock middle depth. This oval mass is hypoechoic with internal echoes and posterior acoustic enhancement. This correlates with mammography findings. IMPRESSION: BENIGN There is no sonographic evidence of malignancy. The oval mass in the left breast likely represents a complicated cyst or a fibroadenoma. This appears unchanged from the mammogram dated 03/11/2020 and is benign. A 1 year screening mammogram is recommended. This exam was interpreted at Station ID: [id number]. Electronically Signed By: Saima harrison/:08/10/2022 13:16:34 letter sent: Normal Exam Ultrasound BI-RADS: 2 Benign
== END ==
PROVIDERS: PCP Family Medicine; Referring Provider Family Medicine; Visit Provider Family Medicine
DX: R92.8 Other abnormal and inconclusive findings on diagnostic imaging of breast (principal); N63.25 Unspecified lump in the left breast, overlapping quadrants
CPT/HCPCS: 76642; 77065; G0279

== ENCOUNTER → 2022-10-06 11:45 | Outpatient (CLI) | payer MEDICARE, SELFPAY ==
[2021-12-14 10:11] VITALS: BMI 21.4
[2022-10-06 13:12] LABS: Alanine Aminotransferase 23 IU/L (<35); Albumin 4.4 g/dL (3.5-5.0); Albumin Globulin Ratio 1.8 (1.0-2.8); Alkaline Phosphatase 76 U/L (38-126); Aspartate Aminotransferase 32 IU/L (14-36); Bilirubin Total 0.5 mg/dL (0.2-1.3); Bilirubin Unconjugated 0.4 mg/dL (0.0-1.1); Globulin 2.5 g/dL (1.7-4.1); HEMOLYSIS < 15 (0-50); Total Protein 6.9 g/dL (6.3-8.2)
== END ==
PROVIDERS: PCP Family Medicine; Referring Provider Internal Medicine Gastroenterology; Visit Provider Internal Medicine Gastroenterology
DX: K86.2 Cyst of pancreas (principal); R94.5 Abnormal results of liver function studies; Q45.3 Other congenital malformations of pancreas and pancreatic duct
CPT/HCPCS: 36415; 80076

== ENCOUNTER → 2023-01-10 14:07 | Outpatient (CLI) | payer MEDICARE, SELFPAY ==
[2021-12-14 10:11] VITALS: BMI 21.4
--- NOTE | 2023-01-10 14:10 | DI.MRI.S_ITS ---
PROCEDURE: MR HIP LT WO CON INDICATIONS: Pain in left hip TECHNIQUE: Noncontrast coronal T1 spin echo and STIR through the bony pelvis. Coronal and axial T2 fast spin echo with fat saturation, sagittal T1 spin echo, and oblique axial T2 fast spin echo with fat saturation through the hip. COMPARISON: [facility] [place], [place], XR PELVIS WITH LATERAL HIP LEFT, 12/23/2022, 10:55. FINDINGS: Image quality: Excellent. Bones and joints: Asymmetric moderate to severe left hip joint osteoarthritis is seen with superior joint space narrowing, subchondral sclerosis and edema and prominent lateral marginal osteophyte formation which can be seen associated with pincer type femoral acetabular impingement. No fracture or dislocation. No avascular necrosis of the femoral heads. The visualized lower lumbar spine appears normally aligned. Moderate left hip joint effusion is seen, no calcified intra-articular loose bodies. Tendons and ligaments: Distal left gluteus medius tendinosis and low-grade partial-thickness tear at its insertion on greater trochanter is seen. Distal left gluteus minimus tendinosis is also noted. The nearby proximal iliotibial band also appears intact. The iliopsoas tendon appears intact, without adjacent bursal fluid collections or evidence for impingement syndrome. The origin of the hamstring tendon is intact at the ischial tuberosity, as well as the associated sacrotuberous ligament. The straight and reflected heads of the rectus femoris muscle origin appear intact, as well as the conjoint tendon. The ligamentum teres appears intact where visualized. Labrum and cartilage: There is diffuse signal abnormality throughout left hip labrum suggestive of extensive superior left hip labral tear. Diffuse loss of articulating cartilages of left femoral head is seen. Soft tissues: Visualized muscles demonstrate normal bulk and internal signal. Quadratus femoris muscle demonstrates no internal edema to suggest ischiofemoral impingement. The proximal sciatic neurovascular bundle appears normal adjacent to the hamstring tendons. No free pelvic fluid. Bladder wall thickness is normal. Genitourinary structures and bowel loops appear normal where visualized. IMPRESSION: 1. Asymmetric moderate to severe left hip joint osteoarthritis. No left hip fracture or dislocation. No evidence of avascular necrosis of femoral head. Moderate left hip joint effusion, no gross loose bodies. 2. Left distal gluteus medius tendinosis and low-grade partial-thickness tear. Left distal gluteus minimus tendinosis. No other muscle or tendon signal abnormalities are seen. 3. Finding is suggestive of extensive superior left hip labral tear. Dictated by: Víctor Monroe M.D. on 01/10/2023 at 17:05 Approved by: Víctor Monroe M.D. on 01/10/2023 at 17:08
== END ==
PROVIDERS: PCP Family Medicine; Referring Provider Orthopaedic Surgery; Visit Provider Orthopaedic Surgery
DX: M25.552 Pain in left hip (principal); M16.12 Unilateral primary osteoarthritis, left hip; M25.452 Effusion, left hip
CPT/HCPCS: 73721

== ENCOUNTER → 2023-02-01 13:27 | Outpatient (CLI) | payer MEDICARE, SELFPAY ==
[2021-12-14 10:11] VITALS: BMI 21.4
[2023-02-01 14:58] LABS: Add Manual Diff / Slide Review NO; Basophils Absolute Auto 0 /uL (0-100); Basophils Percent Auto 0.6 % (0-2); Eosinophils Absolute Auto 100 /uL (0-450); Eosinophils Percent Auto 1.7 % (2-4); Hematocrit 38.4 % (36-46); Hemoglobin 13.1 g/dL (12.0-16.0); Lymphocytes Absolute Auto 1700 /uL (1100-4500); Mean Corpuscular HGB Conc 34.1 % (30-36); Mean Corpuscular Hemoglobin 29.9 PG (26-34); Mean Corpuscular Volume 87.7 fL (80-100); Monocytes Absolute Auto 400 /uL (0-900); Monocytes Percent Auto 8.6 % (3-14); Neutrophils Absolute Auto 2900 /uL (1500-7000); Neutrophils Percent Auto 56.1 % (50-75); Platelet Count 240 X10^3/uL (150-400); Red Blood Cell Count 4.37 X10^6/uL (4.0-5.2); Red Cell Distribution Width 13.5 % (11.6-14.8); White Blood Cell Count 5.2 X10^3/uL (4.5-11.0)
[2023-02-01 15:20] LABS: BUN Creatinine Ratio 20.6 (6-22); Blood Urea Nitrogen 14 mg/dL (7-17); Carbon Dioxide 26 mmol/L (22-32); Chloride 100 mmol/L (98-107); Estimated Glomerular Filt Rate > 60 mL/min (>60); Glucose 97 mg/dL (80-110); HEMOLYSIS < 15 (0-50); Potassium 4.1 mmol/L (3.4-5.1); Sodium 133 mmol/L (137-145)
[2023-02-01 16:47] LABS: Appearance Urine UA CLEAR; Bilirubin Urine UA NEGATIVE (NEGATIVE); Color Urine UA YELLOW; Glucose Urine UA NEGATIVE (Negative); Ketones Urine UA NEGATIVE (NEGATIVE); Leukocyte Esterase Urine UA 2+ (NEGATIVE); Nitrite Urine UA NEGATIVE (Negative); Occult Blood Urine UA TRACE-INTACT (Negative); Protein Urine UA NEGATIVE (Negative); Specific Gravity Urine UA <=1.005 (1.000-1.035); Urobilinogen Urine UA 0.2 E.U./dL (0.2)
[2023-02-01 17:03] LABS: pH Urine UA 6.5 (4.5-8.0)
[2023-02-01 17:40] LABS: Bacteria Urine Few (2-10); RBC Urine 0-1/HPF (0-5/HPF); WBC Urine 5-10/HPF (0-5/HPF)
[2023-02-01 17:41] LABS: Culture Indicated Urine Specimen Cultured; Squamous Epithelial Cell Urine 0-1 /HPF (0-5/HPF); Transitional Epi Cells Urine 1-5/HPF (0-5/HPF)
[2023-02-02 04:24] LABS: x Labcorp Estim. Avg Glu (eAG) 120 mg/dL (.); x Labcorp Hemoglobin A1c 5.8 % (4.8-5.6)
== END ==
PROVIDERS: PCP Family Medicine; Referring Provider Orthopaedic Surgery; Visit Provider Orthopaedic Surgery
DX: Z01.818 Encounter for other preprocedural examination (principal); R73.9 Hyperglycemia, unspecified; Z01.812 Encounter for preprocedural laboratory examination; N39.0 Urinary tract infection, site not specified
CPT/HCPCS: 36415; 80048; 81001; 83036; 85025; 87086; 93005

== ENCOUNTER → 2023-02-16 10:37 | Outpatient (CLI) | payer MEDICARE, SELFPAY ==
[2021-12-14 10:11] VITALS: BMI 21.4
--- NOTE | 2023-02-16 10:39 | DI.RAD.S_ITS ---
Bone Density Report Name: DENICE KANG Age: 72 Sex: Female Ethnicity: White Date of : 1950 Indication: postmenopausal; screening for osteoporosis; prior fracture; Referring Provider: KP LOPEZ Study: Bone densitometry was performed. Exam Date: February 16, 2023 Accession number: [id number] Bone Density: Region BMD T-score Z-score Classification Femoral Neck (Left) 0.710 -1.2 0.6 Osteopenia Total Hip (Left) 0.812 -1.1 0.5 Osteopenia Femoral Neck (Right) 0.736 -1.0 0.9 Normal Total Hip (Right) 0.831 -0.9 0.7 Normal Total Hip Mean 0.821 -1.0 0.6 Normal Total Forearm (Left) 0.540 -0.7 1.4 Normal 1/3 Forearm (Left) 0.690 -0.1 2.2 Normal UD Forearm (Left) 0.395 -0.8 0.8 Normal World Health Organization criteria for BMD impression classify patients as: Normal (T-score at or above -1.0), Osteopenia (T-score between -1.0 and -2.5), or Osteoporosis (T-score at or below -2.5). 10-year Fracture Risk: FRAX not reported because: Prior hip or vertebral fracture Impression: The patient has low bone mass, based on the Left Femoral Neck T-score. The patient has risk factors, including: previous fracture. Discussion: INCREASED RISK OF FRACTURE DUE TO HISTORY OF FRACTURE. The patient's previous fracture puts the patient at high risk of a future fracture. In untreated patients, the risk of osteoporotic fracture increases approximately two-fold for each 1.0 SD decrease in T-score. Low bone density is not the only risk factor for fracture; also consider factors such as patient's age, frailty or poor health, risk of falling, risk of injury, previous osteoporotic fracture, family history of osteoporosis, cigarette smoking, low body weight, etc. Not everyone with a low trauma fracture has osteoporosis; osteomalacia and other metabolic bone disorders should also be considered. Patients who have osteoporosis should be evaluated for specific diseases and conditions (secondary causes) that may cause or contribute to bone loss and fracture risk. National Osteoporosis Foundation (NOF) recommends pharmacologic intervention for patients with a prior hip or vertebral fracture regardless of BMD T-score. The patient should follow a healthful lifestyle (good nutrition with adequate calcium and vitamin D, and appropriate weight-bearing exercise). Follow-Up: Consider a repeat BMD and Vertebral Fracture Assessment (VFA) exam in 2 years or sooner if medically necessary, to reassess this patient's status. Reported by: REGIS HYMAN M.D. on 02/16/2023 11:15:00 AM.
== END ==
PROVIDERS: PCP Family Medicine; Referring Provider Orthopaedic Surgery; Visit Provider Orthopaedic Surgery
DX: Z78.0 Asymptomatic menopausal state (principal); M85.852 Other specified disorders of bone density and structure, left thigh
CPT/HCPCS: 77080; 77081

== ENCOUNTER 2023-04-21 10:51 | Day surgery (SDC) | payer MEDICARE, SELFPAY ==
[2021-12-14 10:11] VITALS: BMI 21.4
[2023-04-12 09:18] VITALS: BMI 21.9
[2023-04-21] VITALS (8 sets, daily range): BP systolic 114–127; BP diastolic 58–99; PULSE 61–94; RESP 11–16; TEMP 36.2–36.7; O2SAT 97–100; BMI 21.9
--- NOTE | 2023-04-21 | DI.RAD.S_ITS ---
PROCEDURE: XR HIP W PEL IF DONE LT 2V INDICATIONS: LEFT ANA TECHNIQUE: Multiple intraoperative fluoroscopic images of the left hip. COMPARISON: [facility] ([facility], XR HIP W PEL IF DONE LT 2V, 08/06/2022, 8:55. FINDINGS: Multiple intraoperative fluoroscopic images were acquired of the left hip for left total hip arthroplasty. No gross hardware complication seen. No osseous abnormalities identified. IMPRESSION: Intraoperative fluoroscopic support for left total hip arthroplasty. Please see separate procedure note for further details. Dictated by: Vargas Rhodes M.D. on 04/21/2023 at 19:53 Approved by: Vargas Rhodes M.D. on 04/21/2023 at 19:54
--- NOTE | 2023-04-21 06:00 | DI.RAD.S_ITS ---
PROCEDURE: XR HIP W PEL IF DONE LT 2V INDICATIONS: post op total left hip TECHNIQUE: AP pelvis and lateral view of the left hip acquired. COMPARISON: [facility], AMARI, XR HIP W PEL IF DONE LT 2V, 04/21/2023, 18:11. FINDINGS: Bones: Patient is status post left hip arthroplasty, with hardware components in expected positions. The hip joint appears congruent. The visualized bony structures appear intact. Soft tissues: Overlying postoperative changes are noted. No suspicious soft tissue densities. IMPRESSION: Expected appearance of the left hip arthroplasty. Dictated by: Ion Matthews M.D. on 04/22/2023 at 9:41 Approved by: Ion Matthews M.D. on 04/22/2023 at 9:41
[2023-04-21] MEDS: ACETAMINOPHEN 325 MG TABLET 975 MG PO (12:58)
[2023-04-21] MEDS: VANCOMYCIN 1,000 MG/200 ML PIGGYBACK 200 MG IV (12:58)
[2023-04-21] MEDS: CELECOXIB 200 MG CAPSULE PO (12:59)
[2023-04-21] MEDS: LACTATED RINGERS 1,000 ML 42 ML IV (12:59)
--- NOTE | 2023-04-21 15:18 | PM.PREOP ---
Pre-operative Note Interval Note History & Physical reviewed/Exam performed by Physician: Yes Changes to H&P: No
--- NOTE | 2023-04-21 15:48 | P.OP_ITS ---
Operative Date/Time/Diagnoses Date of procedure: 04/21/23 Time of procedure: 16:00 Pre-op diagnosis: Severe left hip OA, history of extensive spine fusion Post-op diagnosis: same Procedure & Clinicians Procedure: Left total hip arthroplasty anterior approach Same procedure as scheduled: Yes Indications: The patient has had progressively worsening left hip pain with radiographic changes consistent with arthritis. Non-operative management has failed and the patient has requested total hip replacement. The risks, benefits and alternatives to surgery were discussed with the patient prior to proceeding. Risks discussed included, but were not limited to, failure to relieve pain, leg length discrepancy, dislocation, stiffness, infection, nerve damage, deep venous thrombosis, pulmonary embolism, stroke, coma, heart attack, permanent paralysis and , as well as the potential need for eventual revision of the prosthetic. Surgeon: Jayde Sharpe Psychological Assistant: Enrique Park Anesthesia Type: Spinal Operative Notes Findings: severe left hip OA, adequate bone and stability Closure Type: primary Specimen(s): none sent Prosthetic devices, grafts, tissues, transplants, or devices: [employer] R3 size 54mm, polar stem size 1 standard, dual mobility liner,one 6.5 mm screw, 28 by 42 oxinium +0 Estimated Blood Loss (mL): 250 Blood products transfused: none Procedure in detail: The patient was brought to the operating room. Patient was carefully positioned in the supine position. Time-out was performed and antibiotics were given. Anesthesia was induced. She was positioned in the on the table in order to allow hyperextension of the hip. The left lower extremity was prepped and draped in a standard sterile fashion. An anterior left hip incision was made 1 fingerbreadth lateral to the anterior superior iliac spine and extended distally towards the greater trochanter. Dissection was carried out through skin and subcutaneous tissues. Superficial hemostasis was achieved. The fascia over the tensor fascia karl was defined and incised with a knife. Two Allis clamps were used to grasp the fascia. Tensor fascia karl was retracted laterally. A gelpi retractor was placed. Dissection was carried out down along the neck. The circumflex vessels were carefully identified and cauterized with the Aqua Mantis. A PA was used throughout the procedure and was essential for intraoperative retraction and safe implantation of the components. There was good visualization of the femoral neck. A Cobra was placed superior to the neck and the gluteus fibers were carefully stripped from that superior aspect of the capsule. A 2nd retractor was placed along the inferior aspect of the neck. The rectus insertion along the capsule was partially released. A 3rd retractor that was then gently placed over the rim of the acetabulum under the rectus. Capsule was carefully incised and released from the intertrochanteric line circumferentially superior to the mid sagittal line and inferiorly to the mid sagittal line until the lesser trochanter was palpable. A tag stitch was placed both in the superior and inferior limb of the capsular insertion. Along the acetabulum capsule was also released up to the mid sagittal 12:00 position. A portion of the labrum was resected. A saw was used to perform an osteotomy at the level of the intertrochanteric line and the junction of the superior femoral neck leaving approximately 1 finger breath of residual inferior neck above the lesser trochanter. A 2nd cut was made along the femoral neck at the base of the head and a napkin ring of neck was removed. Corkscrew was placed in the femoral head and the head was removed without difficulty. Retractors were then repositioned around the acetabulum. Residual labrum was resected and additional osteophytes were removed. A reamer that was 4 mm below the templated size was placed by hand in the acetabulum and it was reamed to centralize the acetabulum. It was then reamed up to 2 under the templated size and fluoroscopy was brought in to confirm the position of the reaming and depth of reaming. I reamed 1 under the anticipated size. A trial cup was placed and noted that it was appropriately sized and fluoroscopy confirmed position and depth. The component was open and inserted without difficulty fluoroscopic imaging was used to confirm that the cup had been adequately seated and was well positioned. It was further stabilized with a single screw. Dual mobility Oxinium liner was placed. The cup was tested and noted to be stable. Attention was then directed to the femur. The femur was gently hyperextended additional capsular release was performed as needed in order to allow adequate visualization of the proximal femur with elevation of the femur. Patient was placed in a hyperextended slightly adducted position with maximum external rotation. Box osteotome was used to check for any residual neck as well as sclerotic bone along the trochanter. [place] pepper was placed in the femur. Additional broaching was performed. Canal finder was used to determine the alignment of the canal and position. Size 1 broach was placed. The canal was then appropriately broached up to the templated size as long as there was adequate stability of the broach and serial advancement of the broach without excessive impingement. Specific attention was directed at avoiding varus attempting to direct the distal aspect of the broach more anteriorly and avoiding excessive anteversion. Trial reduction showed acceptable range of motion, good stability, no posterior impingement, baptism of leg length and appropriate lateral shuck. I also hyperflexed the hip and checked that there was no impingement anteriorly and there was good stability with flexion, adduction and internal rotation. Marcaine and Exparel were injected.. The stem was placed without difficulty. Repeat trial reduction and x-ray showed acceptable overall position, length, and no evidence of the femoral fracture. Final head was placed. Wound was meticulously irrigated with normal saline. The hip was reduced and additional Exparel and Marcaine were injected. The capsule was closed with interrupted nonabsorbable sutures. The fascia of the tensor was closed with interrupted and running Vicryl. No drain was placed. Any tensor fascia karl muscle that appeared to be contused or injured which was a minimal amount was carefully resected. Capsule around the tensor was injected with Exparel and Marcaine. The skin was closed with barbed stitches for the subcutaneous tissue and skin. We also used surgical glue. The wound was dressed sterilely. Brief Betadine soak was also used and was meticulously irrigated with normal saline. Patient was transferred to recovery room in satisfactory condition. Complications: none Post-operative Condition: stable Disposition: Acute Care Plan for aftercare: The patient will be maintained on a standard total hip replacement protocol with weight bearing as tolerated and anterior hip precautions. The patient will receive Aspirin and sequential compression devices for DVT prophylaxis. The patient will be discharged home when safe for the home environment.
[2023-04-21] MEDS: TRANEXAMIC ACID 1,000 MG VIAL 1000 MG INJ (16:15)
[2023-04-21] MEDS: CEFAZOLIN 2 GM/100 ML PREMIX 100 ML IV ×2 (16:15→22:09)
--- NOTE | 2023-04-21 16:29 | SUR.OPER ---
Patient supine on padded [place] table, one arm on padded arm board at <90, other arm padded and secured with tape across patient's chest, both legs secured in padded traction boots and positioned per surgeon, padded post at patient's groin, pressure points checked and padded.
[2023-04-21] MEDS: BUPIVACAINE LIPOSOME 266 MG/20 ML VIAL INJ (16:40)
[2023-04-21] MEDS: BUPIVACAINE 0.25% (PF) 60 ML, EPINEPHrine 0.3 MG INJ (16:40)
[2023-04-21] MEDS: SODIUM CHLORIDE IRRIG SOLUTION 250 ML, POVIDONE-IODINE SPONGE STICKS 1 APPLIC IRR (16:41)
[2023-04-21] MEDS: HYDROMORPHONE 1 MG INJ IV (19:20)
[2023-04-21] MEDS: hydrOXYzine 50 MG/ML INJ 25 MG IM (19:37)
[2023-04-21] MEDS: ONDANSETRON 4 MG/2 ML INJ IV (19:37)
[2023-04-21] MEDS: OXYCODONE IR 5 MG TABLET PO ×2 (19:37→22:32)
[2023-04-21] MEDS: LACTATED RINGERS 1,000 ML 100 ML IV (21:39)
[2023-04-21] MEDS: DOCUSATE 100 MG CAPSULE PO (22:10)
[2023-04-21] MEDS: ASPIRIN EC 81 MG TABLET PO (22:10)
[2023-04-21] MEDS: IBUPROFEN 400 MG TABLET PO (22:10)
[2023-04-22] VITALS (8 sets, daily range): BP systolic 94–124; BP diastolic 45–75; PULSE 68–94; RESP 16–19; TEMP 35.8–36.6; O2SAT 95–100
[2023-04-22] MEDS: ACETAMINOPHEN 325 MG TABLET 650 MG PO ×4 (02:04→20:32)
[2023-04-22 05:13] LABS: Hematocrit 32.1 % (36-46); Hemoglobin 11.1 g/dL (12.0-16.0)
[2023-04-22] MEDS: CEFAZOLIN 2 GM/100 ML PREMIX 100 ML IV (06:37)
--- NOTE | 2023-04-22 07:15 | DI.CT.S_ITS ---
PROCEDURE: CT STROKE INDICATIONS: r/o stroke TECHNIQUE: Noncontrast 4.5 mm thick angled axial sections acquired from the foramen magnum to the vertex, with coronal reformats. For radiation dose reduction, the following was used: automated exposure control, adjustment of mA and/or kV according to patient size. COMPARISON: None. FINDINGS: Image quality: Excellent. CSF spaces: Basal cisterns are patent. No extra-axial fluid collections. Ventricles are normal in size and shape. Brain: No midline shift. No intracranial masses or hemorrhage. Diallo-white matter interface is normal. Skull and face: Calvarium and visualized facial bones are intact, without suspicious lesions. Sinuses: Visualized sinuses and mastoids are clear. IMPRESSION: No acute intracranial process. Comment: Findings were discussed with Dr. Wooten on 04/22/2023 at 0741 hours This study fulfills neurological imaging criteria for inclusion or exclusion of acute stroke therapies based on available published neurological imaging guidelines. Dictated by: Arian Carpenter M.D. on 04/22/2023 at 7:40 Approved by: Arian Carpenter M.D. on 04/22/2023 at 7:44
--- NOTE | 2023-04-22 07:15 | DI.CT.S_ITS ---
PROCEDURE: CT ANGIO HEAD AND NECK INDICATIONS: r/o stroke TECHNIQUE: After the administration of intravenous contrast, 1 mm thick sections acquired from the aortic arch through the [place] of Joseph. 3-dimensional bsgbjdk-stplgckwb-yerosjvmqd (MIP) and/or volume rendering reformats were acquired of the central intracranial vasculature and neck separately. For radiation dose reduction, the following was used: automated exposure control, adjustment of mA and/or kV according to patient size. COMPARISON: None. FINDINGS: Image quality: Diagnostic. BRAIN: CSF spaces: Ventricles are normal in size and shape. Basal cisterns are patent. No extra-axial fluid collections. Brain: No significant abnormality of the brain can be seen. Skull and face: Calvarium and facial bones appear intact, without suspicious lesions. Orbits appear normal. Sinuses: Sinuses and mastoids are clear. HEAD CT ANGIOGRAPHY: Anterior circulation: Intracranial internal carotid arteries are normal in size and flow. The flow within the paired anterior cerebral arteries is normal and symmetric. The flow within the middle cerebral arteries is normal and symmetric. The anterior communicating artery is seen. No aneurysms are seen. Posterior circulation: Visualized portions of the vertebral arteries demonstrate normal caliber, and join to form a normal appearing basilar artery. Flow within the posterior cerebral arteries is normal and symmetric. No aneurysms are seen. NECK CT ANGIOGRAPHY: Carotid system: The great vessels demonstrate a conventional anatomy as they arise from the aortic arch. The origins of the common carotid arteries appear patent. The common carotid arteries demonstrate normal caliber and courses. The bifurcation regions are both widely patent. The internal carotid arteries demonstrate normal calibers and courses. Posterior circulation: The origins of the vertebral arteries both appear widely patent. The more superior extracranial portions of both vertebral arteries also demonstrate normal courses and calibers. They join to form a normal appearing basilar artery. Soft tissues: Visualized neck soft tissues demonstrate no suspicious abnormalities. Bones: No suspicious bony lesions. Visualized cervical spine appears normally aligned. IMPRESSION: 1. No stenosis, occlusion, or aneurysm the intracranial or cerebral vasculature. These findings are concordant with the overnight interpretation. Any quantitative measurements of stenosis were performed using NASCET criteria. Dictated by: Saima Trammell M.D. on 04/22/2023 at 8:30 Approved by: Saima Trammell M.D. on 04/22/2023 at 8:36
--- NOTE | 2023-04-22 07:16 | DI.MRI.S_ITS ---
PROCEDURE: MR HEAD/BRAIN WO CON INDICATIONS: r/o stroke TECHNIQUE: Non-contrast axial T1 spin echo, axial T2 fast spin echo, sagittal and axial FLAIR, coronal T2 fast spin echo, axial gradient echo, axial diffusion and ADC through the brain. COMPARISON: [facility], CT, CT ANGIO HEAD AND NECK, 04/22/2023, 7:25. FINDINGS: Image quality: Excellent. CSF spaces: Ventricles appear symmetric in size and shape. Basal cisterns are patent. No extra-axial fluid collections. Brain: No intracranial bleeds or mass effects. There is cerebral volume loss for age. There are mild, age-appropriate periventricular and deep white matter chronic small vessel ischemic changes. Brainstem appears normal. Diffusion-weighted images show no acute ischemic insults. No chronic ischemic insults. Normal intravascular flow voids are present. Skull and face: Calvarial bone marrow is normal in signal. Orbits are normal. Sinuses: Sinuses and mastoids are clear. IMPRESSION: 1. Age-appropriate mild small vessel ischemic change. 2. No acute intracranial abnormality. Dictated by: Arian Carpenter M.D. on 04/22/2023 at 9:22 Approved by: Arian Carpenter M.D. on 04/22/2023 at 9:24
[2023-04-22 07:25] LABS: Add Manual Diff / Slide Review NO; Basophils Absolute Auto 0 /uL (0-100); Basophils Percent Auto 0.3 % (0-2); Eosinophils Absolute Auto 0 /uL (0-450); Eosinophils Percent Auto 0.1 % (2-4); Hematocrit 30.6 % (36-46); Hemoglobin 10.5 g/dL (12.0-16.0); Lymphocytes Absolute Auto 1400 /uL (1100-4500); Lymphocytes Percent Auto 12.1 % (25-40); Mean Corpuscular HGB Conc 34.3 % (30-36); Mean Corpuscular Hemoglobin 30.4 PG (26-34); Mean Corpuscular Volume 88.7 fL (80-100); Monocytes Absolute Auto 1000 /uL (0-900); Monocytes Percent Auto 9.2 % (3-14); Neutrophils Absolute Auto 8900 /uL (1500-7000); Neutrophils Percent Auto 78.3 % (50-75); Platelet Count 181 X10^3/uL (150-400); Red Blood Cell Count 3.45 X10^6/uL (4.0-5.2); Red Cell Distribution Width 13.6 % (11.6-14.8); White Blood Cell Count 11.4 X10^3/uL (4.5-11.0)
--- NOTE | 2023-04-22 07:27 | PM.CN ---
History of Present Illness Consult details Date Patient Seen: 04/22/23 Time Patient Seen: 07:33 Chief complaint: Right Total Hip Arthroplasty/Anterior 04/21 Narrative: Sravanthi Gallo is a 72yo F with PMH of left hip OA s/p total hip on 04/21, Savage's esophagus, GERD, asthma, and gastric ulcer who had a code stroke called at 0710 on 04/22 after patient syncopized in her room and had R sided numbness. Patient is A/Ox3 on my assessment, can raise her eyebrows, smile completely and puff her cheeks. No facial droop, UE weakness. Left post-op leg is weak expectedly, RLE has some drift and decreased sensation. Sent down for stat head CT and CTA. Stat labs ordered and MRI brain. Placed on [employer] Home Medications and Allergies Home Medications Medication Instructions Recorded Confirmed Type calcium carbonate 500 mg calcium 500 mg PO DAILY 02/07/20 04/12/23 History (1,250 mg) tablet (Calcium 500) latanoprost 0.005 % eye drops 1 drp EYE-BOTH DAILY 02/07/20 04/12/23 History melatonin 5 mg capsule 5 mg PO BEDTIME PRN Sleep 02/07/20 04/21/23 History cholecalciferol (vitamin D3) 25 25 mcg PO DAILY 02/15/20 04/21/23 History mcg (1,000 unit) capsule (Vitamin D3) estradiol 10 mcg vaginal tablet 25 mcg (2.5 x 10 mcg) vaginal 2XW 12/17/21 04/12/23 Rx (Vagifem) #60 tabs naproxen 500 mg tablet 500 mg PO BID PRN pain #30 tabs 08/06/22 04/21/23 Rx fluticasone propionate 50 See Rx Instructions .Route 09/14/22 04/12/23 Rx mcg/actuation nasal .COMPLEX #48 grams spray,suspension multivitamin 1 tab PO DAILY 10/06/22 04/12/23 History valacyclovir 1 gram tablet See Rx Instructions .Route 11/10/22 04/12/23 Rx .COMPLEX #10 tabs Allergies Allergy/AdvReac Type Severity Reaction Status Date / Time codeine AdvReac Severe Nausea, Verified 04/21/23 12:50 dizziness hydrocodone AdvReac Severe Nausea Verified 04/21/23 12:50 Review of Systems Review of Systems Narrative: All other systems reviewed with the patient and are negative unless otherwise stated. Exam Vital Signs (past 8 hours): - 04/22/23 01:27 04/22/23 03:06 04/22/23 04:00 Temperature 97.7 F 97.6 F 97.9 F Pulse Rate 80 94 H 75 Respiratory Rate 16 18 16 Blood Pressure 124/66 110/67 105/67 Pulse Oximetry 97 100 95 Oxygen Flow Rate 0 0 0 Oxygen Delivery Method Room Air Oxygen Flow Rate 0 Narrative Exam Narrative: GEN: no acute distress HEENT: moist mucous membranes, PERRL NECK: trachea midline, no JVD CV: regular rate and rhythm, no murmurs PULM: clear bilaterally ABD: soft, nontender, nondistended, no organomegaly EXT: warm and well perfused with no edema NEURO: mild left leg weakness, R leg drift and decreased sensation to bilateral LE's Objective Labs 04/22/23 07:15 04/22/23 07:15 Labs: Laboratory Results - last 24 hr 04/22/23 04/22/23 04:49 07:15 WBC 11.4 H RBC 3.45 L Hgb 11.1 L 10.5 L Hct 32.1 L 30.6 L MCV 88.7 MCH 30.4 MCHC 34.3 RDW 13.6 Plt Count 181 Neut % (Auto) 78.3 H Lymph % (Auto) 12.1 L [place] % (Auto) 9.2 Eos % (Auto) 0.1 L Baso % (Auto) 0.3 Neut # (Auto) 8900 H Lymph # (Auto) 1400 [place] # (Auto) 1000 H Eos # (Auto) 0 Baso # (Auto) 0 PFSH Medical History (Updated 04/12/23 @ 10:39 by Marcela Dave RN) Hx of ectopic Anesthesia complication Atrophic vaginitis Eczema History of depression History of headache Barretts esophagus GERD (gastroesophageal reflux disease) Scoliosis Arthritis Cough Asthma, mild History of blood clots Heart murmur Gastritis Bleeding ulcer Surgical History (Updated 04/22/23 @ 08:23 by Maddie Osborne PA-C) History of lumpectomy of left breast (~2007) Hx of cholecystectomy (07/16/20) History of discectomy Status post cervical spinal fusion (~2005) Hx of carpal tunnel repair History of back surgery (~2003) Family History Grandmother Hypertension Stroke Heart disease Mother Cancer Father Cancer Brother Gallstones Social History marital status: unknown household members: none occupational status: employed Tobacco & Substance Use Smoking Status: Never smoker alcohol intake: current substance use type: does not use Assessment & Plan Assessment & Plan narrative: # stroke rule out -CT/CTA head ordered -brain MRI ordered -echo ordered -neuro checks # POD 1 left total hip replacement -ortho following # GERD -continue PPI Medicine will continue to follow. Thank you for allowing us to participate in the care of this patient. Should you have any questions, do not hesitate to speak with us directly or call us.
[2023-04-22 07:33] LABS: INR 1.1 (0.9-1.3); Prothrombin Time 12.3 SECONDS (10.1-12.7)
[2023-04-22 07:37] LABS: Alanine Aminotransferase 25 IU/L (<35); Albumin 3.2 g/dL (3.5-5.0); Albumin Globulin Ratio 1.6 (1.0-2.8); Alkaline Phosphatase 51 U/L (38-126); Aspartate Aminotransferase 45 IU/L (14-36); BUN Creatinine Ratio 18.8 (6-22); Bilirubin Total 0.5 mg/dL (0.2-1.3); Blood Urea Nitrogen 12 mg/dL (7-17); Calcium 8.2 mg/dL (8.4-10.2); Carbon Dioxide 23 mmol/L (22-32); Chloride 100 mmol/L (98-107); Estimated Glomerular Filt Rate > 60 mL/min (>60); Glucose 115 mg/dL (80-110); HEMOLYSIS < 15 (0-50); Potassium 4.2 mmol/L (3.4-5.1); Sodium 128 mmol/L (137-145); Total Protein 5.2 g/dL (6.3-8.2)
--- NOTE | 2023-04-22 07:37 | RT ---
Responded to Code Stroke, upon arrival pt on room air and no distress noted. Pt airway intact and Rn, CT and MD at bedside.
[2023-04-22 07:49] LABS: Troponin I < 0.012 ng/mL (0.01-0.034)
--- NOTE | 2023-04-22 08:19 | P.PN_ITS ---
Subjective Subjective Date Patient Seen: 04/22/23 Time Patient Seen: 08:19 Interval history: Code stroke called on pt around 0700 this morning. She got up with help to go to the bathroom and felt lightheaded, sweaty, and nauseated. She tells me she was having weakness of both legs as well as weakness of her right arm. She is feeling much better now. CT of the brain was negative for acute processes; CTA of the head and neck reading is pending. Exam Vital Signs (past 8 hours): - 04/22/23 01:27 04/22/23 03:06 04/22/23 04:00 Temperature 97.7 F 97.6 F 97.9 F Pulse Rate 80 94 H 75 Respiratory Rate 16 18 16 Blood Pressure 124/66 110/67 105/67 Pulse Oximetry 97 100 95 Oxygen Flow Rate 0 0 0 Oxygen Delivery Method Room Air Oxygen Flow Rate 0 Narrative Exam Narrative: Face symmetric, speech clear. 5/5 strength throughout BUE, sensation to touch intact throughout BUE. 3/5 PF, 4/5 DF, EHL bilaterally. RLE 4/5 hip flexors, quadriceps, hamstrings. LLE 3/5 hip flexors, quadriceps, hamstrings. Objective Labs 04/22/23 07:15 04/22/23 07:15 Labs: Laboratory Results - last 24 hr 04/22/23 04/22/23 04:49 07:15 WBC 11.4 H RBC 3.45 L Hgb 11.1 L 10.5 L Hct 32.1 L 30.6 L MCV 88.7 MCH 30.4 MCHC 34.3 RDW 13.6 Plt Count 181 Neut % (Auto) 78.3 H Lymph % (Auto) 12.1 L [place] % (Auto) 9.2 Eos % (Auto) 0.1 L Baso % (Auto) 0.3 Neut # (Auto) 8900 H Lymph # (Auto) 1400 [place] # (Auto) 1000 H Eos # (Auto) 0 Baso # (Auto) 0 PT 12.3 INR 1.1 Sodium 128 L Potassium 4.2 Chloride 100 Carbon Dioxide 23 BUN 12 Creatinine 0.64 Estimated GFR > 60 BUN/Creatinine Ratio 18.8 Glucose 115 H Calcium 8.2 L Total Bilirubin 0.5 AST 45 H ALT 25 Alkaline Phosphatase 51 Troponin I < 0.012 Total Protein 5.2 L Albumin 3.2 L Globulin 2.0 Albumin/Globulin Ratio 1.6 PFSH Medical History (Updated 04/12/23 @ 10:39 by Marcela Dave RN) Hx of ectopic Anesthesia complication Atrophic vaginitis Eczema History of depression History of headache Barretts esophagus GERD (gastroesophageal reflux disease) Scoliosis Arthritis Cough Asthma, mild History of blood clots Heart murmur Gastritis Bleeding ulcer Surgical History (Updated 04/22/23 @ 08:23 by Maddie Osborne PA-C) History of lumpectomy of left breast (~2007) Hx of cholecystectomy (07/16/20) History of discectomy Status post cervical spinal fusion (~2005) Hx of carpal tunnel repair History of back surgery (~2003) Family History Grandmother Hypertension Stroke Heart disease Mother Cancer Father Cancer Brother Gallstones Social History marital status: unknown household members: none occupational status: employed Smoking Status: Never smoker alcohol intake: current substance use type: does not use Assessment & Plan Post-op Assessment and plan (1) S/P total hip arthroplasty: Assessment and Plan narrative: Plan on work w/ PT today. Will follow for CTA results. If nothing acute and pt progresses well w/ PT, hopeful d/c home tomorrow to [facility] w/ son and daughter in law. Continue ASA BID and SCDs for VTE prophylaxis. Appreciate hospitalist workup. Postoperative Procedures: Procedures Operation Date: 04/21/23 13:45 Actual Procedure Side Surgeon p Total Hip Arthroplasty/Anterior Approach Left Jayde Sharpe MD Postoperative day: 1 Quality VTE Deep Vein Thrombosis/Pulmonary Embolism Present on Admission: No
[2023-04-22] MEDS: OXYCODONE IR 5 MG TABLET PO (09:08)
[2023-04-22] MEDS: ASPIRIN EC 81 MG TABLET PO ×2 (09:08→20:33)
[2023-04-22] MEDS: MULTIVITAMIN 1 TABLET 1 TAB PO (09:09)
[2023-04-22] MEDS: CHOLECALCIFEROL (VITAMIN D3) 1,000 UNIT TABLET 1000 UNIT PO (09:09)
[2023-04-22] MEDS: CALCIUM CARBONATE 500 MG TAB PO (09:09)
[2023-04-22] MEDS: DOCUSATE 100 MG CAPSULE PO ×2 (09:09→20:33)
[2023-04-22] MEDS: valACYclovir 500 MG TABLET 2000 MG PO (09:12)
--- NOTE | 2023-04-22 10:27 | PT.IIE ---
Current Diagnoses Unilateral primary osteoarthritis, left hip (04/21/23) Presence of unspecified artificial hip joint (04/21/23) Surgery Performed Operation Date: 04/21/23 13:45 Actual Procedures p Total Hip Arthroplasty/Anterior Approach(Left) - Jayde Sharpe MD Surgical History (Last Updated 04/12/23 @ 10:39 by Marcela Dave, RN) History of back surgery (~2003) History of discectomy History of lumpectomy of left breast (~2007) Hx of carpal tunnel repair Hx of cholecystectomy (07/16/20) Status post cervical spinal fusion (~2005) Medical History (Last Updated 04/12/23 @ 10:39 by Marcela Dave, RN) Anesthesia complication Arthritis Asthma, mild Atrophic vaginitis Barretts esophagus Bleeding ulcer Cough Eczema Gastritis GERD (gastroesophageal reflux disease) Heart murmur History of blood clots History of depression History of headache Hx of ectopic Scoliosis Physical Therapy Inpatient Evaluation/Re-Eval M1 PT/OT-IP Prior Functional Status Start: 04/22/23 12:53 Freq: NEEDED Status: Active Protocol: Document 04/22/23 10:27 AB (Rec: 04/22/23 13:03 [email or web address]) Medical Review Prior Functional Status Medical History Reviewed Yes Communication able to make needs known Mobility and Gait pt stated that she was independent with all mobilities and ambulation without AD Social History Household Members none Living Arrangements House Number of Floors (Floors) Two Floors Number of Stairs To Enter/Railing? pt stays on main level of the house has 2 steps without rails to enter the house Home Environment Standard Height Toilet,Walk in Shower,Built-In Shower Seat Home Equipment Front Wheel Walker Additional Social History Comment pt's son and DIL will be staying with pt to assist her for ~ 1 week; afterwards, pt has a friend who can stay with her and help her pt has 2 walking sticks M2 PT-IP Current Condition Start: 04/22/23 12:53 Freq: NEEDED Status: Active Protocol: Document 04/22/23 10:27 AB (Rec: 04/22/23 13:03 [email or web address]) Physical Therapy Current Condition Current Condition Evaluation Date 04/22/23 Treatment Diagnosis s/p L ANA anterior approach; difficulty in walking Onset Date 04/21/23 M3 PT-IP Subjective Start: 04/22/23 12:53 Freq: NEEDED Status: Active Protocol: Document 04/22/23 10:27 AB (Rec: 04/22/23 13:03 AB [email or web address]) Subjective Physical Therapy Visit Type Type Initial Evaluation Visit Start Time 10:27 Visit Stop Time 11:25 Total Visit Minutes 58 Number of EXPERIMENTAL PREFLIGHT MECHANIC Visits 0 Physical Therapy Visit Comments Patient Comments agreeable to do PT Therapy Pain Assessment Pain When Pain Assessed At Rest Location Left Hip Scale Used pain scale not stated Pain Management Techniques Distraction,Modification of Treatment,Re-positioning, Timing of Activity with Medications M4 PT-IP Mobility and Gait Start: 04/22/23 12:53 Freq: NEEDED Status: Active Protocol: Document 04/22/23 10:27 AB (Rec: 04/22/23 13:03 AB [id number]) PT-Bed Mobility Assessment Supine to Sit Supine to Sit Minimal Assistance PT-Transfer Assessment Sit to and From Stand Sit to and from Stand Minimal Assistance,1 Person Assistance,Use of Upper Extremities Equipment Transfer Assistive Device Gait Belt,Front Wheeled Walker Orthotic/Prosthetic Devices or Brace: No Transfers Transfer Destination Chair,Toilet Transfer Technique ambulated Transfer Ability Level of Assist Contact Guard Assistance, Minimal Assistance,1 Person Assistance,Use of Upper Extremities Comments Mobility Comments pt supine in bed. son and DIL in room with pt. post-op folder provided and reviewed contents. educated pt and family regarding pt's anterior hip precautions. pt was able to recall her precautions. BP in supine: 92/53. pt completed supine to sit min A and max cues for techniques. able to sit on EOB SBA. BP in sittin/43. completed sit to stand min A and ambulated towards the chair using FWW CGA to min A. presents with unsteady antalgic gait. pt sat on the chair. BP checked: 104/48. pt then requested to use the toilet. sit to stand from the chair CGA to min A and ambulated to the toilet using FWW CGA to min A. pt used grab bar for controlled descent to the toilet. completed sit to stand from the toilet min A with use of grab bar. pt ambulated to the chair ~ 10 ft using fWW CGA to min A. positioned pt on the chair. call light and table placed within reach. caregiver training set up at ~ 2pm this afternoon. Gait Assessment Gait Gait Assistance Required: Contact Guard Assist,Minimum Assistance Distance (Feet) 12 Able to Maintain Weight Bearing Status Yes During Gait Assistive Devices Assistive Device Gait Belt,Front Wheeled Walker Orthotic/Prosthetic Devices or Brace: No Gait Deviations General Gait Pattern Antalgic,Decreased Feet Clearance Factors Limiting Gait Function Factors Limiting Gait Function Decreased Activity Tolerance, Decreased Strength,Difficulty Following Directions,Limited Range of Motion,Pain,Poor Balance,Poor Safety Awareness PT-Balance Assessment Sitting Balance and Reactions Static Sitting Balance Ability Good Dynamic Sitting Balance Ability Good Standing Balance and Reactions Static Standing Balance Ability Fair Dynamic Standing Balance Ability Fair Device Used FWW M5 PT-IP Objective Assessments Start: 04/22/23 12:53 Freq: NEEDED Status: Active Protocol: Document 04/22/23 10:27 AB (Rec: 04/22/23 13:03 [email or web address]) Orientation Orientation/Cognition Level of Alertness Alert Orientation Name,Place,Situation Language Function Ability No Deficits Noted Safety Awareness Decreased Safety Awareness Memory Description Short Term Impaired Gross Range of Motion Lower Extremity ROM Assessment Within Functional Limits Strength Lower Extremity Strength Assessment Left Impaired Hip 3+/5 Knee 3+/5 Coordination Assessment Gross Coordination Gross Coordination WNL Sensation Assessment Sensation Gross Sensation WNL Muscle Tone Muscle Tone WNL Yes M6 PT-IP Treatment Start: 04/22/23 12:53 Freq: NEEDED Status: Active Protocol: Document 04/22/23 10:27 AB (Rec: 04/22/23 13:03 [email or web address]) Physical Therapy Treatment Education Education Provided Precautions,Weight Bearing Status,Post-Op Packet,Safety M7 PT-IP Assessment and Plan Start: 04/22/23 12:53 Freq: NEEDED Status: Active Protocol: Document 04/22/23 10:27 AB (Rec: 04/22/23 13:03 [email or web address]) PT Summary Assessment and Plan Potential Rehabilitation Potential Fair Status of Condition at Evaluation Evolving Summary Impairments Pain,ROM,Strength,Balance, Coordination,Sensation,Tone, Cognition,Bed Mobility, Transfers,Gait,Activity Tolerance Assessment Summary pt is a 72 y/o F s/p L ANA anterior approach. educated pt on anterior hip precautions weight bearing status. pt requiring CGA to min A with mobility using FWW. caregiver training set up this afternoon and will continue to assess progress. pt has 2 steps to enter the house and needs to be completed prior to d/c. Goals Bed Mobility Goal Independent Transfer Goal Independent,Front Wheeled Walker Gait Goal Independent,Front Wheel Walker Gait Distance 200 Other Goals up/down 2 steps using 2 walking sticks CGA Days to Meet Goals 5 Frequency of Treatment Frequency Of Treatment Twice a Day Treatment Plan Physical Therapy Treatment Plan Bed Mobility Training,Transfer Training,Gait Training, Therapeutic Exercise,Balance Retraining,Post Op Education, Discharge Planning,Hot or Cold Pack,Neuromuscular Re-ed, Coordination Retraining,Manual Therapy Precautions Anterior Hip Precautions No Hip Extension,No Hip External Rotation Weight Bearing Status Weight Bearing Status Weight Bear as Tolerated Allowed Weight Bearing Amount (enter % LLE WBAT or #) (%) Recommendations To Nursing Amount of Assist Needed 1 Person Assist Discharge Recommendations PT Discharge Recommendations Home with 10/01 Assist Available,Home Health Transportation Needs at Discharge Private Vehicle
--- NOTE | 2023-04-22 11:31 | CM.DANOTE ---
Initial DCP Assessment Note Pt is a 72 yo female, resident of [facility], now POD#1 from left hip surgery by Dr Sharpe PCP: Isak Holm Payer: MCR/TIERRA Reviewed chart, met w/patient and her son this morning at bedside, introduced self and role. Patient had a syncopal event this morning, imaging completed and all Neg for stroke. Patient reports feeling much better, sx resolved, expresses gratitude to family at bedside for support. Patient is independent in all regards. Patient's son and DIL are staying with her to assist in her recovery. Discussed home health vs outpatient PT, patient is likely to have outpatient PT upon discharge but thankful for the information about HH. No barriers identified at this time to patient's safe discharge home w/family to assist; close outpatient f/u recommended. therapies pending today. CM team will plan to follow closely in case any DC needs or concerns arise. CLAUDIA Marmolejo Discharge Planning/Care Management CM Discharge Assessment Start: 04/22/23 11:29 Freq: Status: Active Protocol: Document 04/22/23 11:29 FRANDY (Rec: 04/22/23 11:31 [id number]) Discharge Planning Assessment Assigned Refrigeration Engineering Teacher CLAUDIA Evangelista DPOA/Assigned Designee Name tari De La Vega Contact Information [phone] Advance Directives? Yes Advance Directives on File Yes History Provided By Patient,Medical Record Prior Living Arrangements House Household Members none Type of transporation used prior to Drives own vehicle admit Independent with ADL's Yes Is patient alert and oriented? Yes Barriers to Discharge No Comment Home w/family and outpatient therapy anticipated upon discharge Discharge Plan Home Transportation Arrangement Family Referrals Initiated None needed Whiteboard Updated in Patient Room with Yes name and ext. # of Refrigeration Engineering Teacher
--- NOTE | 2023-04-22 11:34 | OT.IPNOTE ---
Pt just finished seeing PT and feeling nauseous and vomited. Assist nursing to get pt back to bed, no charge.
[2023-04-22 11:55] LABS: Sodium Urine Random 24 mmol/L (30-90)
[2023-04-22 12:40] LABS: Appearance Urine UA CLEAR; Bilirubin Urine UA NEGATIVE (NEGATIVE); Color Urine UA YELLOW; Glucose Urine UA NEGATIVE (Negative); Ketones Urine UA NEGATIVE (NEGATIVE); Leukocyte Esterase Urine UA NEGATIVE (NEGATIVE); Nitrite Urine UA NEGATIVE (Negative); Occult Blood Urine UA NEGATIVE (Negative); Protein Urine UA NEGATIVE (Negative); Specific Gravity Urine UA <=1.005 (1.000-1.035); Urobilinogen Urine UA 0.2 E.U./dL (0.2)
[2023-04-22 12:46] LABS: pH Urine UA 6.5 (4.5-8.0)
[2023-04-22 12:47] LABS: Bacteria Urine None Seen; Culture Indicated Urine Cult Not Indicated; RBC Urine 0-1/HPF (0-5/HPF); Squamous Epithelial Cell Urine 0-1 /HPF (0-5/HPF); WBC Urine 0-1/HPF (0-5/HPF)
--- NOTE | 2023-04-22 14:15 | PT.IPTN ---
Current Diagnoses Unilateral primary osteoarthritis, left hip (04/21/23) Presence of unspecified artificial hip joint (04/21/23) Surgery Performed Operation Date: 04/21/23 13:45 Actual Procedures p Total Hip Arthroplasty/Anterior Approach(Left) - Jayde Sharpe MD Physical Therapy Treatment Note M2 PT-IP Current Condition Start: 04/22/23 12:53 Freq: NEEDED Status: Active Protocol: Document 04/22/23 10:27 AB (Rec: 04/22/23 13:03 AB [email or web address]) Physical Therapy Current Condition Current Condition Evaluation Date 04/22/23 Treatment Diagnosis s/p L ANA anterior approach; difficulty in walking Onset Date 04/21/23 M3 PT-IP Subjective Start: 04/22/23 12:53 Freq: NEEDED Status: Active Protocol: Document 04/22/23 14:15 AB (Rec: 04/22/23 16:40 AB [email or web address]) Subjective Physical Therapy Visit Type Type Treatment Note Visit Start Time 14:15 Visit Stop Time 15:12 Total Visit Minutes 57 Number of RESAW OPERATOR Visits 0 Physical Therapy Visit Comments Patient Comments agreeable to do PT Therapy Pain Assessment Pain When Pain Assessed At Rest Pain Present Pain Present Pain Reported Location Left Hip Intensity 5 Scale Used Numeric (0 - 10) Pain Management Techniques Distraction,Modification of Treatment,Re-positioning, Timing of Activity with Medications M4 PT-IP Mobility and Gait Start: 04/22/23 12:53 Freq: NEEDED Status: Active Protocol: Document 04/22/23 14:15 AB (Rec: 04/22/23 16:40 AB [email or web address]) PT-Bed Mobility Assessment Supine to Sit Supine to Sit Minimal Assistance Sit to Supine Sit to Supine Minimal Assistance PT-Transfer Assessment Sit to and From Stand Sit to and from Stand Contact Guard Assistance, Minimal Assistance,1 Person Assistance,Use of Upper Extremities Equipment Transfer Assistive Device Gait Belt,Front Wheeled Walker Orthotic/Prosthetic Devices or Brace: No Transfers Transfer Destination Bed,Chair Transfer Technique ambulated Transfer Ability Level of Assist Contact Guard Assistance, Minimal Assistance,1 Person Assistance,Use of Upper Extremities Comments Mobility Comments pt supine in bed. son and DIL in room with pt. pt's BP stable throughout PT session. caregiver training conducted. reviewed hip precautions and pt was able to recall. pt completed supine to sit min A and max cues. DIL was able to assist pt. pt able to sit on EOB SBA. educated DIL on how to use safety belt and how to assist pt. DIL was able to put safety belt on pt, assisted pt with sit to stand CGA to min A and ambulated pt to the chair. pt sat on the chair and rested. BP: 110/49. educated pt and family regarding stair climbing using 2 SPC simulating pt's 2 hiking poles. pt ambulated from the chair towards the platform step using FWW CGA to min A ~ 30 ft . PT assisted pt with up/down platform step using 2 SPC min A and max cues. pt repeated but with DIL assisting and cueing pt and was able to safely complete. pt ambulated back to the room and requested to use the toilet. DIL assisted pt with toilet transfers. pt requested to go back to bed and ambulated from the toilet to the bed using FWW CGA to min A. completed sit to supine min A. positioned pt in bed. call light and table placed within reach. Gait Assessment Gait Gait Assistance Required: Contact Guard Assist,Minimum Assistance Distance (Feet) 30 Able to Maintain Weight Bearing Status Yes During Gait Assistive Devices Assistive Device Gait Belt,Front Wheeled Walker Orthotic/Prosthetic Devices or Brace: No Gait Deviations General Gait Pattern Antalgic,Decreased Feet Clearance Factors Limiting Gait Function Factors Limiting Gait Function Decreased Activity Tolerance, Decreased Strength,Limited Range of Motion,Pain,Poor Balance,Poor Safety Awareness Stair Climbing Assessment Evaluation Level of Assist On Stairs Minimal Assistance Devices Stair Climbing Assistive Devices Straight Cane Technique/Endurance Stair Climbing Direction Ascend and Descend Stair Climbing Technique Step to Step Number of Steps Climbed 1 Stair Climbing Set # Repetitions (reps) 2 M5 PT-IP Objective Assessments Start: 04/22/23 12:53 Freq: NEEDED Status: Active Protocol: Document 04/22/23 10:27 AB (Rec: 04/22/23 13:03 AB [id number]) Orientation Orientation/Cognition Level of Alertness Alert Orientation Name,Place,Situation Language Function Ability No Deficits Noted Safety Awareness Decreased Safety Awareness Memory Description Short Term Impaired Gross Range of Motion Lower Extremity ROM Assessment Within Functional Limits Strength Lower Extremity Strength Assessment Left Impaired Hip 3+/5 Knee 3+/5 Coordination Assessment Gross Coordination Gross Coordination WNL Sensation Assessment Sensation Gross Sensation WNL Muscle Tone Muscle Tone WNL Yes M6 PT-IP Treatment Start: 04/22/23 12:53 Freq: NEEDED Status: Active Protocol: Document 04/22/23 14:15 AB (Rec: 04/22/23 16:40 AB [id number]) Physical Therapy Treatment Education Education Provided Precautions,Safety M7 PT-IP Assessment and Plan Start: 04/22/23 12:53 Freq: NEEDED Status: Active Protocol: Document 04/22/23 14:15 AB (Rec: 04/22/23 16:40 AB [email or web address]) PT Summary Assessment and Plan Potential Rehabilitation Potential Good Summary Impairments Pain,ROM,Strength,Balance, Coordination,Sensation,Tone, Cognition,Bed Mobility, Transfers,Gait,Activity Tolerance Progress Towards Goals Slow Progress due to Pain Assessment Summary Caregiver training conducted and DIL was able to safely assist pt with mobility. pt plans to go home tomorrow and may go home when medically stable. Goals Bed Mobility Goal Independent Transfer Goal Independent,Front Wheeled Walker Gait Goal Independent,Front Wheel Walker Gait Distance 200 Other Goals up/down 2 steps using 2 walking sticks CGA Days to Meet Goals 5 Frequency of Treatment Frequency Of Treatment Twice a Day Treatment Plan Physical Therapy Treatment Plan Bed Mobility Training,Transfer Training,Gait Training, Therapeutic Exercise,Balance Retraining,Post Op Education, Discharge Planning,Hot or Cold Pack,Neuromuscular Re-ed, Coordination Retraining,Manual Therapy Precautions Anterior Hip Precautions No Hip Extension,No Hip External Rotation Weight Bearing Status Weight Bearing Status Weight Bear as Tolerated Allowed Weight Bearing Amount (enter % LLE WBAT or #) (%) Recommendations To Nursing Amount of Assist Needed 1 Person Assist Discharge Recommendations PT Discharge Recommendations Home with 10/01 Assist Available,Home Health Transportation Needs at Discharge Private Vehicle
[2023-04-22] MEDS: TRAMADOL 50 MG TABLET PO ×2 (14:27→18:15)
--- NOTE | 2023-04-22 15:40 | OT.IP.EVAL ---
Current Diagnoses Unilateral primary osteoarthritis, left hip (04/21/23) Presence of unspecified artificial hip joint (04/21/23) Surgery Performed Operation Date: 04/21/23 13:45 Actual Procedures p Total Hip Arthroplasty/Anterior Approach(Left) - Jayde Sharpe MD Past Medical History (Last Updated 04/12/23 @ 10:39 by Marcela Dave, RN) Anesthesia complication Arthritis Asthma, mild Atrophic vaginitis Barretts esophagus Bleeding ulcer Cough Eczema Gastritis GERD (gastroesophageal reflux disease) Heart murmur History of blood clots History of depression History of headache Hx of ectopic Scoliosis Surgical History (Last Updated 04/12/23 @ 10:39 by Marcela Dave RN) History of back surgery (~2003) History of discectomy History of lumpectomy of left breast (~2007) Hx of carpal tunnel repair Hx of cholecystectomy (07/16/20) Status post cervical spinal fusion (~2005) Occupational Therapy Inpatient Evaluation/Re-Eval M1 PT/OT-IP Prior Functional Status Start: 04/22/23 12:53 Freq: NEEDED Status: Active Protocol: Document 04/22/23 10:27 AB (Rec: 04/22/23 13:03 [id number]) Medical Review Prior Functional Status Medical History Reviewed Yes Communication able to make needs known Mobility and Gait pt stated that she was independent with all mobilities and ambulation without AD Social History Household Members none Living Arrangements House Number of Floors (Floors) Two Floors Number of Stairs To Enter/Railing? pt stays on main level of the house has 2 steps without rails to enter the house Home Environment Standard Height Toilet,Walk in Shower,Built-In Shower Seat Home Equipment Front Wheel Walker Additional Social History Comment pt's son and DIL will be staying with pt to assist her for ~ 1 week; afterwards, pt has a friend who can stay with her and help her pt has 2 walking sticks M2 OT-IP Current Condition Start: 04/22/23 15:17 Freq: Status: Active Protocol: Document 04/22/23 15:17 [facility] (Rec: 04/22/23 15:58 [facility] [id number]) Occupational Therapy Current Condition Current Condition Evaluation Date 04/22/23 Treatment Diagnosis S/P L ANA Anterior Diagnosis Onset Date 04/21/23 Post Operative Precautions Anterior Hip Precautions No Hip Extension,No Hip External Rotation M3 OT- IP Subjective and Pain Start: 04/22/23 15:17 Freq: Status: Active Protocol: Document 04/22/23 15:17 [facility] (Rec: 04/22/23 15:58 [facility] [id number]) OT- Subjective Occupational Therapy Visit Type Type Initial Evaluation Visit Start Time 15:21 Visit Stop Time 15:40 Total Visit Minutes 19 Occupational Therapy Visit Comments Patient Comments Pt too tired from just doing steps during caregiver training with PT. Patient/Caregiver Goals To go home. OT Pain Assessment Pain When Pain Assessed At Rest Pain Present Pain Present Pain Reported M4 OT- IP ADL's Start: 04/22/23 15:17 Freq: Status: Active Protocol: Document 04/22/23 15:17 [facility] (Rec: 04/22/23 15:58 [facility] [id number]) OT YSE-Ihzu-Dlnocow General Evaluation Self-Feeding Ability Independent OT ADL-Grooming General Evaluation Grooming Ability Independent OT ADL-Dressing Comments OT Dressing Comments Educated for pt not to externally rotate her left LE out for dressing needs. Able to show pt sock aid and equine internship. Pt insists that she will be able to just bends forwards or get her kids to assist. OT ADL-Toileting Comments OT Toileting Comments Educated pt to be mindful of her LLE and not to externally rotate it out while wiping. In addition use of wet one and pads at night can be helpful. Also to call for her kids to assist her at night. OT ADL-Bathing Comments OT Bathing Comments Educated maybe easier to use the walker to get into the shower. M5 OT- IP IADL's Start: 04/22/23 15:17 Freq: Status: Active Protocol: Document 04/22/23 15:17 [facility] (Rec: 04/22/23 15:58 [facility] [id number]) OT-Instrumental Activities of Daily Living Deficits IADL Deficits Identified Deficits Home Safety Awareness Awareness of Need for Assistance at Home Good Awareness Home Safety Comments Pt a little groggy at this time but her kids to assist her. M6 OT- IP Functional Cognition Start: 04/22/23 15:17 Freq: Status: Active Protocol: Document 04/22/23 15:17 [facility] (Rec: 04/22/23 15:58 [facility] [id number]) Cognitive Factors Limiting Selfcare Function Cognitive Ability Level of Alertness Alert Patient Orientation Name,Place,Situation Attention Span Ability Capable of Focused Attention, Capable of Sustained Attention Ability to Follow Commands Able to Follow One Step Commands with Increased Time, Able to Follow One Step Commands with Repetition Safety Awareness Decreased Recall of Precautions Cognitive Comments Cognitive Assessment Comments Pt needing reminders for her hip precautions and how to incorporate during ADL needs. M9 OT- IP Assessment and Plan Start: 04/22/23 15:17 Freq: Status: Active Protocol: Document 04/22/23 15:17 [facility] (Rec: 04/22/23 15:58 [facility] [id number]) OT Summary Assessment and Plan Potential Rehabilitation Potential Good Analytic Complexity at Evaluation Low Summary OT Impairments Pain,Strength,Balance, Functional Mobility,Dressing, Toileting,Bathing,Toilet Transfers,Shower Transfers, Activity Tolerance Progress Towards Goals Slow Progress due to Pain,Slow Progress due to Medical Issues Assessment Summary Pt low complexity and main barriers are steps, a bit groggy, and now will need some assistance for mobility and ADL needs. Able to suggest use fo LB dressing equipment if needed, benefit to get a hand held shower spray, wet ones, and pads. Pt's kids states good understanding of OT needs for the pt at this time. Pt go home with assist and outpt PT when medically stable. Goals Dressing Goal Independent Toileting Goal Independent Bathing Goal Standby Assistance Toilet Transfer Goal Independent Shower Transfer Goal Standby Assistance Days to Meet Goals 5 Frequency of Treatment Frequency Of Treatment Once a Day Treatment Plan OT Treatment Plan ADL Training,Functional Mobility Discharge Recommendations OT Discharge Recommendations Home with Assistance, Outpatient PT Home Equipment Needs hand held shower spray, LB dressing equipment Transportation Needs at Discharge Private Vehicle
[2023-04-23] MEDS: TRAMADOL 50 MG TABLET PO ×3 (00:18→09:28)
[2023-04-23 00:36] VITALS: BP 122/68; PULSE 80; RESP 18; TEMP 36.2; O2SAT 100
[2023-04-23] MEDS: ACETAMINOPHEN 325 MG TABLET 650 MG PO (01:20)
[2023-04-23 04:35] VITALS: BP 116/67; PULSE 69; RESP 16; TEMP 36.2; O2SAT 99
[2023-04-23 08:53] VITALS: BP 94/53; PULSE 87; RESP 18; TEMP 36.3; O2SAT 98
--- NOTE | 2023-04-23 08:55 | PT.IPTN ---
Current Diagnoses Unilateral primary osteoarthritis, left hip (04/21/23) Presence of unspecified artificial hip joint (04/21/23) Surgery Performed Operation Date: 04/21/23 13:45 Actual Procedures p Total Hip Arthroplasty/Anterior Approach(Left) - Jayde Sharpe MD Physical Therapy Treatment Note M2 PT-IP Current Condition Start: 04/22/23 12:53 Freq: NEEDED Status: Active Protocol: Document 04/22/23 10:27 AB (Rec: 04/22/23 13:03 AB [id number]) Physical Therapy Current Condition Current Condition Evaluation Date 04/22/23 Treatment Diagnosis s/p L ANA anterior approach; difficulty in walking Onset Date 04/21/23 M3 PT-IP Subjective Start: 04/22/23 12:53 Freq: NEEDED Status: Active Protocol: Document 04/23/23 09:22 TS (Rec: 04/23/23 09:41 TS [id number]) Subjective Physical Therapy Visit Type Type Treatment Note Visit Start Time 08:55 Visit Stop Time 09:20 Total Visit Minutes 25 Number of FAMILY WORKER Visits 1 Physical Therapy Visit Comments Patient Comments Pt found resting in chair, would like to practice getting in and out of bed. Therapy Pain Assessment Pain When Pain Assessed During Mobility Pain Present Pain Present Pain Reported M4 PT-IP Mobility and Gait Start: 04/22/23 12:53 Freq: NEEDED Status: Active Protocol: Document 04/23/23 09:22 TS (Rec: 04/23/23 09:41 TS [id number]) PT-Bed Mobility Assessment Supine to Sit Supine to Sit Contact Guard Assistance Sit to Supine Sit to Supine Minimal Assistance Scooting Scooting to Edge of Bed Standby Assistance PT-Transfer Assessment Sit to and From Stand Sit to and from Stand Standby Assistance,Use of Upper Extremities Equipment Transfer Assistive Device Gait Belt,Front Wheeled Walker Orthotic/Prosthetic Devices or Brace: No Comments Mobility Comments Pt recalled 2/2 hip precautions prior to surgery. Sit to stand with FWW from chair SBA, pt demonstrated good carryover of sequencing. She ambulated ~30' SBA with slow step to gait and use of FWW. Sit to supine into bed Marshall for LLE into bed. Supine to sit CGA with BUE support to upright trunk. Pt ambulated back to chair, was left with family in room, all needs met, RN notified. Gait Assessment Gait Gait Assistance Required: Standby Assistance Distance (Feet) 30 Able to Maintain Weight Bearing Status Yes During Gait Assistive Devices Assistive Device Gait Belt,Front Wheeled Walker Orthotic/Prosthetic Devices or Brace: No Gait Deviations General Gait Pattern Antalgic,Decreased Feet Clearance Factors Limiting Gait Function Factors Limiting Gait Function Decreased Activity Tolerance, Decreased Strength,Limited Range of Motion,Pain,Poor Balance Comments Gait Comments See mobility comments PT-Balance Assessment Sitting Balance and Reactions Static Sitting Balance Ability Good Dynamic Sitting Balance Ability Good Standing Balance and Reactions Static Standing Balance Ability Good Dynamic Standing Balance Ability Fair Device Used FWW M5 PT-IP Objective Assessments Start: 04/22/23 12:53 Freq: NEEDED Status: Active Protocol: Document 04/22/23 10:27 AB (Rec: 04/22/23 13:03 AB [id number]) Orientation Orientation/Cognition Level of Alertness Alert Orientation Name,Place,Situation Language Function Ability No Deficits Noted Safety Awareness Decreased Safety Awareness Memory Description Short Term Impaired Gross Range of Motion Lower Extremity ROM Assessment Within Functional Limits Strength Lower Extremity Strength Assessment Left Impaired Hip 3+/5 Knee 3+/5 Coordination Assessment Gross Coordination Gross Coordination WNL Sensation Assessment Sensation Gross Sensation WNL Muscle Tone Muscle Tone WNL Yes M6 PT-IP Treatment Start: 04/22/23 12:53 Freq: NEEDED Status: Active Protocol: Document 04/23/23 09:22 TS (Rec: 04/23/23 09:41 TS [id number]) Physical Therapy Treatment Education Education Provided Precautions,Safety M7 PT-IP Assessment and Plan Start: 04/22/23 12:53 Freq: NEEDED Status: Active Protocol: Document 04/23/23 09:22 TS (Rec: 04/23/23 09:41 TS [id number]) PT Summary Assessment and Plan Potential Rehabilitation Potential Good Summary Impairments Pain,ROM,Strength,Balance, Coordination,Sensation,Tone, Cognition,Bed Mobility, Transfers,Gait,Activity Tolerance Progress Towards Goals Progressing Toward Goals Assessment Summary Solange is progressing well with her mobility this session. She is SBA for sit to stands with FWW, demonstrates good carryover of sequencing. She continues to ambulate ~30' SBA with FWW. She performed bed mobility CGA/Marshall for LLE. She demonstrates good safety awareness of her precautions during mobility. PT is recommending home with 10/01 assist and outpatient PT. Goals Bed Mobility Goal Independent Transfer Goal Independent,Front Wheeled Walker Gait Goal Independent,Front Wheel Walker Gait Distance 200 Other Goals up/down 2 steps using 2 walking sticks CGA Days to Meet Goals 5 Frequency of Treatment Frequency Of Treatment Twice a Day Treatment Plan Physical Therapy Treatment Plan Bed Mobility Training,Transfer Training,Gait Training, Therapeutic Exercise,Balance Retraining,Post Op Education, Discharge Planning,Hot or Cold Pack,Neuromuscular Re-ed, Coordination Retraining,Manual Therapy Precautions Anterior Hip Precautions No Hip Extension,No Hip External Rotation Weight Bearing Status Weight Bearing Status Weight Bear as Tolerated Allowed Weight Bearing Amount (enter % LLE WBAT or #) (%) Recommendations To Nursing Amount of Assist Needed 1 Person Assist Discharge Recommendations PT Discharge Recommendations Home with 10/01 Assist Available,Outpatient PT Transportation Needs at Discharge Private Vehicle
[2023-04-23] MEDS: DOCUSATE 100 MG CAPSULE PO (09:29)
[2023-04-23] MEDS: CHOLECALCIFEROL (VITAMIN D3) 1,000 UNIT TABLET 1000 UNIT PO (09:29)
[2023-04-23] MEDS: MULTIVITAMIN 1 TABLET 1 TAB PO (09:29)
[2023-04-23] MEDS: ASPIRIN EC 81 MG TABLET PO (09:29)
--- NOTE | 2023-04-23 09:34 | P.DS_ITS ---
History of Present Illness History of Present Illness Date Patient Seen: 04/23/23 Time Patient Seen: 09:35 Chief complaint: Right Total Hip Arthroplasty/Anterior 04/21 Narrative: Operative Date/Time/Diagnoses Date of procedure: 04/21/23 Time of procedure: 16:00 Pre-op diagnosis: Severe left hip OA, history of extensive spine fusion Post-op diagnosis: same Procedure & Clinicians Procedure: Left total hip arthroplasty anterior approach Same procedure as scheduled: Yes Indications: The patient has had progressively worsening left hip pain with radiographic changes consistent with arthritis. Non-operative management has failed and the patient has requested total hip replacement. The risks, benefits and alternatives to surgery were discussed with the patient prior to proceeding. Risks discussed included, but were not limited to, failure to relieve pain, leg length discrepancy, dislocation, stiffness, infection, nerve damage, deep venous thrombosis, pulmonary embolism, stroke, coma, heart attack, permanent paralysis and , as well as the potential need for eventual revision of the prosthetic. Surgeon: Jayde Sharpe Media Monitor: Enrique Park Anesthesia Type: Spinal Operative Notes Findings: severe left hip OA, adequate bone and stability Closure Type: primary Specimen(s): none sent Prosthetic devices, grafts, tissues, transplants, or devices: [employer] R3 size 54mm, polar stem size 1 standard, dual mobility liner,one 6.5 mm screw, 28 by 42 oxinium +0 Estimated Blood Loss (mL): 250 Blood products transfused: none Discharge Providers Provider Discharge Date: 04/23/23 Primary care physician: Isak Holm DO Consults: 04/21/23 06:00 Consult to Anesthesiology Routine Comment: Consulting Provider: Anesthesiologist Reason for consultation: Regional block for post operative pain control 04/21/23 19:56 Consult to Discharge Planning Routine Comment: Consult to Occupational Therapy Evaluate & Treat Comment: Physician Instructions: Evaluate and treat Consult to Physical Therapy Evaluate & Treat Comment: Physician Instructions: post op ANA protocol 04/22/23 07:22 Consult to Hospitalist Service Routine Comment: Consulting Provider: Ryan Wooten Reason for consultation: code stroke Has provider been notified: Yes Discharge provider: Maddie Osborne PA-C Summary Hospital Course Discharge Diagnosis: Left hip osteoarthritis, s/p left ANA Hospital Course: Ms Gallo's hospital course was remarkable for an episode of lightheadedness and weakness of BLE and RUE on the morning of POD# 1. Code stroke was called. W/u included head CT, head/neck CTA, and brain MRI, all of which were negative for acute processes. Her labs were remarkable for low sodium, and there did not appear to be any infectious processes. On the morning of POD# 2 she was feeling well and wanted to go home with family. She was eating and voiding without difficulty and her pain was well-controlled with tramadol. She complained of inability to raise her left leg at the hip but had no loss of sensation. Exam Vital Signs (past 8 hours): - 11/ 04:35 11/ 08:53 Temperature 97.1 F L 97.4 F L Pulse Rate 69 87 Respiratory Rate 16 18 Blood Pressure 116/67 94/53 L Pulse Oximetry 99 98 Oxygen Flow Rate 0 Oxygen Delivery Method Room Air Oxygen Flow Rate 0 Narrative Exam Narrative: 3/5 strength in hip flexors, 5/5 quadriceps, hamstrings, DF, PF, EHL on left. Sensation to light touch intact throughout LLE. Calf soft and compressible. Aquacel dressing CDI. Objective Labs 04/22/23 07:15 11 07:15 Labs: Laboratory Results - last 24 hr 04/22/23 11:21 Urine Color Yellow Urine Appearance Clear Urine pH 6.5 Ur Specific [place] <=1.005 Urine Protein Negative Urine Glucose (UA) Negative Urine Ketones Negative Urine Occult Blood Negative Urine Nitrate Negative Urine Bilirubin Negative Urine Urobilinogen 0.2 Ur Leukocyte Esterase Negative Urine RBC 0-1/hpf Urine WBC 0-1/hpf Ur Squamous Epith Cells 0-1 /hpf Urine Bacteria None seen Ur Culture Indicated? Cult not indicated Ur Random Sodium 24 L [facility] Medical History (Updated 04/12/23 @ 10:39 by Marcela Dave RN) Hx of ectopic Anesthesia complication Atrophic vaginitis Eczema History of depression History of headache Barretts esophagus GERD (gastroesophageal reflux disease) Scoliosis Arthritis Cough Asthma, mild History of blood clots Heart murmur Gastritis Bleeding ulcer Surgical History (Updated 04/22/23 @ 08:23 by Maddie Osborne PA-C) History of lumpectomy of left breast (~2007) Hx of cholecystectomy (07/16/20) History of discectomy Status post cervical spinal fusion (~2005) Hx of carpal tunnel repair History of back surgery (~2003) Family History Grandmother Hypertension Stroke Heart disease Mother Cancer Father Cancer Brother Gallstones Social History marital status: unknown household members: none occupational status: employed Smoking Status: Never smoker alcohol intake: current substance use type: does not use Discharge Assessment & Plan Assessment and Plan Assessment: Left hip osteoarthritis, s/p left ANA Plan of Treatment: Likely vasovagal episode on POD# 1. Discharge home w/ family, outpt PT, ASA BID x 6 weeks for VTE prophylaxis, multimodal pain control, f/u in office in 2 weeks as scheduled. Discharge Plan Discharge Plan Patient Disposition: Home Discharge orders & Medications Discharge Orders: Discharge (Order); Ordered 04/23/23 Ordered By: Maddie Osborne Prescriptions: New acetaminophen 325 mg Tablet 650 mg PO Q6H PRN (Reason: fever or pain) Qty: 240 0RF aspirin 81 mg Tablet,Delayed Release (Dr/Ec) 81 mg PO BID Qty: 90 0RF docusate sodium 100 mg Capsule 100 mg PO BID PRN (Reason: constipation) Qty: 60 1RF tramadol 50 mg Tablet 50 mg PO Q4-6H PRN (Reason: Pain, Moderate (4-6)) Qty: 60 0RF Continued fluticasone propionate 50 mcg/actuation spray,suspension See Rx Instructions .ROUTE .COMPLEX Qty: 48 2RF Dose Instruction: USE 1 SPRAY NASALLY DAILY Rx Instructions: USE 1 SPRAY NASALLY DAILY valacyclovir 1 gram tablet See Rx Instructions .ROUTE .COMPLEX Qty: 10 1RF Rx Instructions: Take 2,000mg q 12 hr on day 1 then 1,000 q 12 on days 2-5; calcium carbonate [Calcium 500] 500 mg calcium (1,250 mg) tablet 500 mg PO DAILY melatonin 5 mg capsule 5 mg PO BEDTIME PRN (Reason: Sleep) latanoprost 0.005 % drops 1 drp EYE-BOTH DAILY multivitamin Tablet 1 tab PO DAILY cholecalciferol (vitamin D3) [Vitamin D3] 25 mcg (1,000 unit) Capsule 25 mcg PO DAILY estradiol [Vagifem] 10 mcg tablet 25 mcg vaginal 2XW Qty: 60 5RF naproxen 500 mg tablet 500 mg PO BID PRN (Reason: pain) Qty: 30 0RF Rx Instructions: Take with food Follow up/Referrals: Isak Holm, [Primary Care Provider] - Wayne Lozano MD [Physician] - As previously scheduled (Entered in error.) Jayde Sharpe MD [Physician] - As previously scheduled (Follow up with Dr Sharpe on 05/04/2023 @ 10:30 am at [employer] office [facility].) Diet/Activity/Treatments Diet: Diet as Tolerated Activity: Weightbearing as tolerated to left leg. Anterior hip precautions. Cold/Heat Therapy: Ice to hip as needed for pain. Skin/Wound/Dressing Care Report to your healthcare provider any signs of infection, such as:: chills, fever, night sweats, unusual drainage and unusual redness Dressing: Leave Aquacel dressing in place until follow up in office. No bathing or otherwise soaking incision. Call the office if the dressing becomes saturated. Visit Report/Discharge Packet Instructions: DI for Hip Replacement, DI for Prescription Opioid Use Stand Alone Forms: Patient Portal/API, Surgery Discharge Discharge Data Primary Care Provider: Isak Holm Attending Provider: Jayde Sharpe Quality VTE Deep Vein Thrombosis/Pulmonary Embolism Present on Admission: No
--- NOTE | 2023-04-23 11:11 | PC.NURSE ---
Pt A&Ox4, VSS. BLE CMS intact, left leg weaker/stiff post surgery but tolerated ambulation with walker/assistance. Reviewed discharge packet and reinforced post-surgical precautions. Patient able to teach back independently. IV removed intact, tolerated well. Patient escorted downstairs in wheelchair and discharged home with ride from family.
== END 2023-04-23 10:15 | disposition home or self-care (01) ==
LOC: OR 10:53 → AC 10:54
PROVIDERS: Student in an Organized Health Care Education/Training Program; PCP Family Medicine; Referring Provider Orthopaedic Surgery; Visit Provider Orthopaedic Surgery
PROC: (CPT 27130; principal; 2023-04-21 13:45)
DX: M16.12 Unilateral primary osteoarthritis, left hip (principal); M25.752 Osteophyte, left hip; R29.710 NIHSS score 10; R42 Dizziness and giddiness; R53.1 Weakness
CPT/HCPCS: 27130; 36415; 70450; 70496; 70498; 70551; 73502; 76000; 80053; 81001; 84300; 84484; 85014; 85018; 85025; 85610; 93005; 97116; 97162; 97165; 97530; C1776; C9290; J0171; J0690; J1100; J1170; J2405; J2704; J3010; J3410; J3490; Q9967

== ENCOUNTER → 2023-08-31 14:37 | Outpatient (CLI) | payer MEDICARE, SELFPAY ==
[2023-04-21 22:39] VITALS: BMI 21.9
--- NOTE | 2023-08-31 | DI.MG.S_ITS ---
BILATERAL DIGITAL SCREENING MAMMOGRAM 3D/2D WITH CAD: 08/31/2023 CLINICAL: Routine screening. Family history of breast cancer. Comparison is made to exams dated: 08/10/2022 mammogram, 08/06/2022 mammogram - [facility], and 03/11/2020 mammogram - outside. Both breasts are heterogeneously dense, which may obscure small masses (category c / 51-75% glandular tissue). Current study was also evaluated with a Computer Aided Detection (CAD) system. No significant masses, calcifications, or other findings are seen in either breast. There has been no significant interval change. IMPRESSION: NEGATIVE There is no mammographic evidence of malignancy. A 1 year screening mammogram is recommended. Based on the Tyrer Cuzick model (a risk assessment model) the patient's lifetime risk is 8.0% and her 10 year risk is 6.0%. According to the ACR, ACS, and NCCN guidelines, an annual breast MRI exam along with mammogram is recommended if the patient's lifetime risk is 20% or greater. This exam was interpreted at Station ID: [id number]. NOTE: For mammograms, a report in lay terms will be sent to the patient. Approximately 15% of breast malignancies will not be visualized mammographically. In the management of a palpable breast mass, a negative mammogram must not discourage biopsy of a clinically suspicious lesion. Electronically Signed By: Ion fry/ward:08/31/2023 21:35:43 letter sent: Normal Exam ACR BI-RADS Category 1: Negative [id number]
== END ==
LOC: MAMMO 14:39
PROVIDERS: PCP Family Medicine; Referring Provider Family Medicine; Visit Provider Family Medicine
DX: Z12.31 Encounter for screening mammogram for malignant neoplasm of breast (principal); Z80.3 Family history of malignant neoplasm of breast; R92.333 Mammographic heterogeneous density, bilateral breasts
CPT/HCPCS: 77063; 77067